=== PATIENT | female | born 1995 | race Caucasian/White ===

== ENCOUNTER 2017-01-07 11:42 | Emergency (ER) | payer MEDICAID ==
[~2017-01-07] VITALS: Ht 165.1 cm; Wt 77.1 kg
[~2017-01-07 11:42] MED LIST: ACET1TAB12 PO; AMOX500C2 PO; CEPH500C PO; DOCU100C37 PO; FRS325T PO; HYDR-3720 PO; HYDR-757 PO; IBP600T1 PO; IBUP-1780 PO; ONDN4T PO; OXYC-465 PO; PRD20T PO; PREN-37 PO; PREN1TAB39 PO; SULF1TAB38 PO
--- OUTSIDE RECORDS SUMMARY | 2017-01-07 11:50 | XMS REPORT | Continuity of Care Document ---
Author Author [facility] Organization [facility] Address Unknown Phone Unavailable Allergies Active Description Code Type Severity Reaction Onset Reported/Identified Relationship to Patient Clinical Status Yes nitrofurantoin [id number] Drug Allergy Unknown HIVES 06/03/2014 Yes Nitrofurantoin Macrocrystal [id number] Drug Allergy Unknown HIVES 06/03/2014 Yes ondansetron HCl [id number] Drug Allergy Unknown N/A 06/03/2014 Medications Problems Date Dx Coded Attending Type Code Diagnosis Diagnosed By 05/21/2013 COSME RAMIREZ APRN Ot 724.2 LUMBAGO 10/27/2013 AYLA HUERTA, CHUCKY Tirado Ot 883.0 OPEN WOUND OF FINGER 10/27/2013 AYLA HUERTA, CHUCKY Tirado Ot E920.4 ACCID-OTHER HAND TOOLS 10/27/2013 AYLA HUERTA, CHUCKY Tirado Ot V06.1 [id number], COMBINED [ 05/27/2014 DONI HUERTA, SOPHIE Clark Ot 634.90 SPON ABORT UNCOMPL-UNSP 05/31/2014 COSME RAMIREZ HEAD ATHLETIC TRAINER Ot 780.64 CHILLS (WITHOUT FEVER) 05/31/2014 COSME RAMIREZ HEAD ATHLETIC TRAINER Ot 780.79 OTH MALAISE FATIGUE 06/03/2014 TITUS ALONZO MD Ot 632 MISSED 06/03/2014 TITUS ALONZO MD Ot 634.91 SPON ABORT UNCOMPL-INC 02/26/2015 COSME RAMIREZ HEAD ATHLETIC TRAINER Ot N72 INFLAMMATORY DISEASE OF CERVIX UTERI 02/26/2015 COSME RAMIREZ HEAD ATHLETIC TRAINER Ot R52 PAIN, UNSPECIFIED 03/03/2015 COSME RAMIREZ HEAD ATHLETIC TRAINER Ot N72 03/03/2015 COSME RAMIREZ APRN Ot R52 06/05/2015 Ot O47.02 FALSE LABOR BEFORE 37 COMPLETED WEEKS OF 06/05/2015 Ot Z3A.21 21 WEEKS GESTATION OF 06/17/2015 Ot F17.210 NICOTINE DEPENDENCE, CIGARETTES, UNCOMPL 06/17/2015 Ot J02.9 ACUTE PHARYNGITIS, UNSPECIFIED 06/17/2015 Ot K08.8 OTHER SPECIFIED DISORDERS OF TEETH AND S 08/25/2015 TITUS ALONZO MD, Ot 285.9 08/25/2015 TITUS ALONZO MD, Ot 632 08/25/2015 TITUS ALONZO MD, Ot V72.83 08/25/2015 TITUS ALONZO MD, Ot V74.8 08/25/2015 TITUS ALONZO MD, Ot O47.9 FALSE LABOR, UNSPECIFIED 08/25/2015 TITUS ALONZO MD, Ot Z3A.00 WEEKS OF GESTATION OF NOT SPEC 09/01/2015 TITUS ALONZO MD, Ot O47.9 FALSE LABOR, UNSPECIFIED 09/01/2015 TITUS ALONZO MD, Ot Z3A.00 WEEKS OF GESTATION OF NOT SPEC 09/22/2015 TITUS ALONZO MD, Ot O60.14X0 LABOR THIRD TRI W DELIVE 09/22/2015 TITUS ALONZO MD, Ot O73.1 RETAINED PORTIONS OF PLACENTA AND MEMBRA 09/22/2015 TITUS ALONZO MD, Ot Z37.0 SINGLE LIVE 09/22/2015 TITUS ALONZO MD, Ot Z3A.36 36 WEEKS GESTATION OF 09/29/2015 TITUS ALONZO MD, Ot K80.50 CALCULUS OF BILE DUCT W/O CHOLANGITIS OR 09/29/2015 TITUS ALONZO MD, Ot R10.11 RIGHT UPPER QUADRANT PAIN 10/08/2015 TITUS ALONZO MD, Ot K80.50 CALCULUS OF BILE DUCT W/O CHOLANGITIS OR 10/08/2015 TITUS ALONZO MD, Ot R10.11 RIGHT UPPER QUADRANT PAIN 10/19/2016 TITUS ALONZO MD, Ot 285.9 ANEMIA NOS 10/19/2016 TITUS ALONZO MD, Ot 632 MISSED 10/19/2016 TITUS ALONZO MD, Ot V72.83 EXAM PRE-OPERATIVE NEC 10/19/2016 TITUS ALONZO MD Ot V74.8 SCREEN-BACTERIAL DIS NEC Procedures Code Description Performed By Performed On [id number] 09/21/2015 [id number] 09/21/2015 [id number] 09/21/2015 Results Encounters ACCT No. Visit Date/Time Discharge Status Pt. Type Provider Facility Loc./Unit Complaint [id number] 10/21/2016 08:15:00 2016 23:59:59 CLS Preadmit JANE ELAINE [facility] RAD RUQ PAIN R10.11 [id number] 09/26/2015 07:34:00 2015 23:59:59 CLS Outpatient TITUS ALONZO MD [facility] RAD [id number] 09/21/2015 09:26:00 2015 18:20:00 DIS Outpatient TITUS ALONZO MD [facility] LDRP [id number] 08/25/2015 18:52:00 2015 19:42:00 DIS Outpatient TITUS ALONZO MD [facility] WSo [id number] 02/26/2015 11:14:00 2014 13:51:00 DIS Emergency COSME RAMIREZ APRN [facility] ER ABD CRAMPING,BACK PAIN [id number] 06/03/2014 06:05:00 2014 09:35:00 DIS Outpatient TITUS ALONZO MD [facility] SDC MISSED [id number] 05/31/2014 12:15:00 2014 23:59:59 CLS Outpatient TITUS ALONZO MD [facility] PREOP MISSED [id number] 05/31/2014 18:23:00 2014 20:11:00 DIS Emergency COSME RAMIREZ APRN [facility] ER CHILLS,SOA [id number] 05/27/2014 21:42:00 2014 23:21:00 DIS Emergency DONI HUERTA, SOPHIE Clark [facility] ER VAG BLEED AT 11 WEEKS [id number] 10/26/2013 23:58:00 2013 00:19:00 DIS Emergency AYLA HUERTA, CHUCKY Tirado [facility] ER TETANUS SHOT [id number] 05/21/2013 20:11:00 2013 22:25:00 DIS Emergency COSME RAMIREZ APRN [facility] ER BACK PAIN [id number] 01/14/2013 22:23:00 2012 22:48:00 DIS Emergency [id number] 10/10/2012 22:21:00 2012 22:51:00 DIS Emergency [id number] 09/11/2012 13:21:00 2012 14:57:00 DIS Emergency [id number] 09/09/2012 23:30:00 2012 00:35:00 DIS Emergency [id number] 06/17/2015 21:32:00 Document Registration [id number] 06/05/2015 18:25:00 Document Registration
--- NOTE | 2017-01-07 12:11 | ED General ---
General Chief Complaint: General Problems/Pain Stated Complaint: SHAKING/NAUSEOUS Source of Information: Patient Exam Limitations: No Limitations History of Present Illness Time Seen by Provider: 12:09 Initial Comments This 19-year-old white female presents with a four-day history of nausea vomiting and diarrhea. The patient denies associated hematemesis or black or tarry stools and the patient has had mild cramping abdominal pain that has been diffuse. There is been no associated fever, chills, headache, stiff neck, productive cough, palpitations, rash, or remarkable pertinent past medical history. Patient is a spontaneous Ab1 white female. Allergies and Home Medications Allergies Coded Allergies: Nitrofurantoin Macrocrystal (Verified Allergy, Unknown, HIVES, 06/03/14) nitrofurantoin (Verified Allergy, Unknown, HIVES, 06/03/14) ondansetron HCl (Verified Allergy, Unknown, 06/03/14) Home Medications Docusate Sodium 100 Mg Capsule, 100 MG PO BID, #60 Prescribed by: TITUS GARCIA on 09/22/15 0732 Ibuprofen 800 Mg Tablet, 800 MG PO Q6H, #60 Prescribed by: TITUS GARCIA on 09/22/15 0732 Oxycodone HCl/Acetaminophen 1 Each Tablet, 1-2 TAB PO Q4H PRN for PAIN, #60 Prescribed by: TITUS GARCIA on 09/22/15 0732 Vit/Iron Fumarate/FA 1 Each Tablet, 1 EACH PO DAILY, (Reported) Constitutional: No chills, No fever EENTM: No ear pain, No vision loss Respiratory: No cough Cardiovascular: No chest pain Gastrointestinal: No abdominal pain, diarrhea, nausea, vomiting Genitourinary: No dysuria, No frequency Musculoskeletal: No back pain, No neck pain Skin: No change in color, No rash Psychiatric/Neurological: No Symptoms Reported Hematologic/Lymphatic: No Symptoms Reported Past Uhluxoj-Pdgewi-Jayvsr Hx Patient Social History Recent Foreign Travel: No Contact w/Someone Who Travel: No Immunizations Up To Date Tetanus Booster (TDap): Unknown PED Vaccines UTD: Yes Date of Pneumonia Vaccine: Feb 13, 2011 Date of Influenza Vaccine: Feb 13, 2011 Seasonal Allergies Seasonal Allergies: No Reproductive System Hx Reproductive Disorders: Yes Sexually Transmitted Disease: Yes (Dx chlamydia at beginning of ) HIV/AIDS: No Female Reproductive Disorders: Denies Reviewed Nursing Assessment Reviewed/Agree w Nursing PMH: Yes Family Medical History Significant Family History: No Pertinent Family Hx Family Medial History: Alcoholism 19 FATHER 19 MOTHER Cardiovascular disease 19 MOTHER Congenital heart disease 19 MOTHER Hypertension 19 MOTHER Myocardial infarction 19 MOTHER Physical Exam Vital Signs Vital Sign - Last 12Hours 01/07/17 12:08 Temp 96.9 Pulse 74 Resp 14 B/P (MAP) 122/84 Pulse Ox 98 O2 Delivery Room Air Capillary Refill : General Appearance: No Apparent Distress, WD/WN Eyes: Bilateral Eye Normal Inspection HEENT: Normal ENT Inspection Neck: Normal Inspection Respiratory: Chest Non Tender, Lungs Clear, Normal Breath Sounds Cardiovascular: Regular Rate, Rhythm, No Edema, No JVD, No Murmur, Normal Peripheral Pulses Gastrointestinal: Normal Bowel Sounds, No Organomegaly, No Pulsatile Mass, Non Tender, Soft Back: Normal Inspection Extremity: Normal Inspection Neurologic/Psychiatric: Alert, Oriented x3, No Motor/Sensory Deficits, Normal Mood/Affect Progress/Results/Core Measures Results/Orders Lab Results Laboratory Tests Test 01/07/17 12:00 01/07/17 12:50 Range/Units Urine Color YELLOW Urine Clarity CLEAR Urine pH 6 5-9 Urine Specific [place] 1.010 L 1.016-1.022 Urine Protein NEGATIVE NEGATIVE Urine Glucose (UA) NEGATIVE NEGATIVE Urine Ketones NEGATIVE NEGATIVE Urine Nitrite NEGATIVE NEGATIVE Urine Bilirubin NEGATIVE NEGATIVE Urine Urobilinogen NORMAL NORMAL MG/DL Urine Leukocyte Esterase NEGATIVE NEGATIVE Urine RBC (Auto) NEGATIVE NEGATIVE Urine RBC NONE /HPF Urine WBC NONE /HPF Urine Squamous Epithelial Cells RARE /HPF Urine Crystals NONE /LPF Urine Bacteria NEGATIVE /HPF Urine Casts NONE /LPF Urine Mucus NEGATIVE /LPF Urine Culture Indicated NO White Blood Count 7.7 4.3-11.0 10^3/uL Red Blood Count 4.71 4.35-5.85 10^6/uL Hemoglobin 14.8 11.5-16.0 G/DL Hematocrit 44 35-52 % Mean Corpuscular Volume 93 80-99 FL Mean Corpuscular Hemoglobin 31 25-34 PG Mean Corpuscular Hemoglobin Concent 34 32-36 G/DL Red Cell Distribution Width 12.6 10.0-14.5 % Platelet Count 223 130-400 10^3/uL Mean Platelet Volume 11.2 H 7.4-10.4 FL Neutrophils (%) (Auto) 67 42-75 % Lymphocytes (%) (Auto) 24 12-44 % Monocytes (%) (Auto) 7 0-12 % Eosinophils (%) (Auto) 1 0-10 % Basophils (%) (Auto) 1 0-10 % Neutrophils # (Auto) 5.2 1.8-7.8 X 10^3 Lymphocytes # (Auto) 1.9 1.0-4.0 X 10^3 Monocytes # (Auto) 0.6 0.0-1.0 X 10^3 Eosinophils # (Auto) 0.0 0.0-0.3 10^3/uL Basophils # (Auto) 0.0 0.0-0.1 10^3/uL Sodium Level 140 135-145 MMOL/L Potassium Level 3.4 L 3.6-5.0 MMOL/L Chloride Level 105 98-107 MMOL/L Carbon Dioxide Level 27 21-32 MMOL/L Anion Gap 8 5-14 MMOL/L Blood Urea Nitrogen 4 L 7-18 MG/DL Creatinine 0.72 0.60-1.30 MG/DL Estimat Glomerular Filtration Rate > 60 BUN/Creatinine Ratio 6 Glucose Level 94 70-105 MG/DL Calcium Level 9.6 8.5-10.1 MG/DL Total Bilirubin 0.4 0.1-1.0 MG/DL Aspartate Amino Transf (AST/SGOT) 19 5-34 U/L Alanine Aminotransferase (ALT/SGPT) 16 0-55 U/L Alkaline Phosphatase 55 40-136 U/L Total Protein 7.2 6.4-8.2 GM/DL Albumin 4.4 3.2-4.5 GM/DL Lipase 24 8-78 U/L My Orders Orders - JESSICA RUEDA MD Cbc With Automated Diff (01/07/17 12:06) Comprehensive Metabolic Panel (01/07/17 12:06) Lipase (01/07/17 12:06) Ua Culture If Indicated (01/07/17 12:06) Ondansetron Injection (Zofran Injectio (01/07/17 12:15) Ns Iv 1000 Ml (Sodium Chloride 0.9%) (01/07/17 12:15) Vital Signs/I&O Vital Sign - Last 12Hours 01/07/17 12:08 Temp 96.9 Pulse 74 Resp 14 B/P (MAP) 122/84 Pulse Ox 98 O2 Delivery Room Air Progress Note : Time: 14:40 Progress Note Patient received a liter of normal saline with good improvement in her symptoms. Patient's nausea subsided spontaneously. Patient felt ready to go home on a trial of clear liquids. She did not want to take any meds. I had ordered Zofran for nausea but patient reported she was allergic to the med and the nurse did a good job of withholding it from the patient. Departure Impression Impression: Primary Impression: Nausea & vomiting Qualified Codes: R11.2 - Nausea with vomiting, unspecified Disposition: HOME, SELF-CARE Condition: Improved Departure-Patient Inst. Decision time for Depature: 14:44 Referrals: JANE ELAINE (PCP) Primary Care Physician LANIE ARAUJO MD (Family) Primary Care Physician Patient Instructions: Nausea and Vomiting, Adult Add. Discharge Instructions: Liquid diet today. Rest at home today return of any problems. Follow-up with your care physicians on Tuesday if you have any residual symptoms. All discharge instructions reviewed with patient and/or family. Voiced understanding. JESSICA RUEDA MD Jan 07, 2017 12:11
[2017-01-07 12:12] LABS: BILIRUBIN,URINE NEGATIVE (NEGATIVE); KETONES,URINE NEGATIVE (NEGATIVE); LEUKOCYTE ESTERASE ,URINE NEGATIVE (NEGATIVE); NITRITE,URINE NEGATIVE (NEGATIVE); PH,URINE 6 (5-9); PROTEIN,URINE NEGATIVE (NEGATIVE); UROBILINOGEN,URINE NORMAL (NORMAL)
[2017-01-07 12:22] LABS: SQUAMOUS EPITHELIAL CELL,UR RARE /HPF
[2017-01-07] MEDS: ONDANSETRON 4 MG/2 ML (SDV) Z0FRAN IVP ONE (12:35)
[2017-01-07 13:01] LABS: BASOPHILS % (AUTO) 1 % (0-10); EOSINOPHILS % (AUTO) 1 % (0-10); LYMPHOCYTES # (AUTO) 1.9 X 10^3 (1.0-4.0); LYMPHOCYTES % (AUTO) 24 % (12-44); MEAN CORPUSCULAR HEMOGLOBIN 31 PG (25-34); MEAN CORPUSCULAR HGB CONC 34 G/DL (32-36); MEAN CORPUSCULAR VOLUME 93 FL (80-99); MEAN PLATELET VOLUME 11.2 FL (7.4-10.4); MONOCYTES # (AUTO) 0.6 X 10^3 (0.0-1.0); MONOCYTES % (AUTO) 7 % (0-12); NEUTROPHILS # (AUTO) 5.2 X 10^3 (1.8-7.8); NEUTROPHILS % (AUTO) 67 % (42-75); PLATELET COUNT 223 10^3/uL (130-400); RED BLOOD COUNT 4.71 10^6/uL (4.35-5.85); RED CELL DISTRIBUTION WIDTH 12.6 % (10.0-14.5); WHITE BLOOD COUNT 7.7 10^3/uL (4.3-11.0)
[2017-01-07] MEDS: NS IV 1000 ML 1,000 ML IV SCH (13:06)
[2017-01-07 13:23] LABS: ALANINE AMINOTRANSFERASE 16 U/L (0-55); ALBUMIN 4.4 GM/DL (3.2-4.5); ANION GAP 8 MMOL/L (5-14); ASPARTATE AMINO TRANSFERASE 19 U/L (5-34); BILIRUBIN,TOTAL 0.4 MG/DL (0.1-1.0); BLOOD UREA NITROGEN 4 MG/DL (7-18); BUN/CREATININE RATIO 6; CALCIUM 9.6 MG/DL (8.5-10.1); CARBON DIOXIDE 27 MMOL/L (21-32); CHLORIDE 105 MMOL/L (98-107); CREATININE SERUM 0.72 MG/DL (0.60-1.30); GFR ESTIMATED > 60; GLUCOSE 94 MG/DL (70-105); LIPASE 24 U/L (8-78); POTASSIUM 3.4 MMOL/L (3.6-5.0); SODIUM 140 MMOL/L (135-145); TOTAL PROTEIN 7.2 GM/DL (6.4-8.2)
[2017-01-07 14:50] VITALS: BP 128/87
== END 2017-01-07 14:50 | disposition home or self-care (01) ==
LOC: EDUNIT# 11:42 → ER 11:45
DX: R11.2 Nausea with vomiting, unspecified (principal); Z82.49 Family history of ischemic heart disease and other diseases of the circulatory system; Z87.59 Personal history of other complications of pregnancy, childbirth and the puerperium
CPT/HCPCS: 36415; 80053; 81000; 83690; 85025

== ENCOUNTER 2017-08-23 19:23 | Emergency (ER) | payer MEDICAID ==
[~2017-08-23] VITALS: Ht 165.1 cm; Wt 81.2 kg
--- OUTSIDE RECORDS SUMMARY | 2017-08-23 19:28 | XMS REPORT ---
Author Author JANE ELAINE [facility] Address [address] [place] [address] Care Team Providers Care Pre Planning Advisor Name Role Phone JANE ELAINE Unavailable PROBLEMS Type Condition ICD9-CM Code [id number] Code Onset Dates Condition Status SNOMED Code Problem Adjustment disorder with depressed mood F43.21 Active 47242873 Problem Adjustment disorder with anxiety F43.22 Active 70259674 Problem Social phobia F40.10 Active 29878326 Problem Grief reaction F43.20 Active 33790532 ALLERGIES Substance Reaction Event Type Date Status Macrobid anaphylaxis Drug Allergy September, Active SOCIAL HISTORY Never Assessed PLAN OF CARE Activity Details Follow Up 4 Weeks Reason: VITAL SIGNS Height 65.0 in 2016-10-13 Weight 167 lbs 2016-10-13 Temperature 98.6 degrees Fahrenheit 2016-10-13 Heart Rate 88 bpm 2016-10-13 Respiratory Rate 18 2016-10-13 BMI 27.79 kg/m2 2016-10-13 Blood pressure systolic 98 mmHg 2016-10-13 Blood pressure diastolic 68 mmHg 2016-10-13 MEDICATIONS Medication Instructions Dosage Frequency Start Date End Date Duration Status Pepcid 20 mg Orally twice a day 1 tablet 12September, 30 day(s) Active RESULTS Name Result Date Reference Range H PYLORI (IN HOUSE) H. PYLORI negative Control + Lot # [id number] Exp date 04/2017 TRICHOMONAS (IN HOUSE) 2016-10-13 TRICHOMONAS Neg Control + Lot # [id number] Exp date 10/2017 BACTERIAL VAGINOSIS (IN HOUSE) 2016-10-13 RESULTS Neg Control 1+ Lot # [id number] Exp date 02/2017 CBC 2016-10-13 WBC 10.6 3.4-10.8 RBC 4.61 3.77-5.28 Hemoglobin 14.8 11.1-15.9 Hematocrit 44.5 34.0-46.6 MCV 97 79-97 MCH 32.1 26.6-33.0 MCHC 33.3 31.5-35.7 RDW 13.2 12.3-15.4 Platelets 286 150-379 Neutrophils 67 Lymphs 26 Monocytes 6 Eos 1 Basos 0 Immature Cells Neutrophils (Absolute) 7.1 1.4-7.0 Lymphs (Absolute) 2.8 0.7-3.1 Monocytes(Absolute) 0.6 0.1-0.9 Eos (Absolute) 0.1 0.0-0.4 Baso (Absolute) 0.0 0.0-0.2 Immature Granulocytes 0 Immature Grans (Abs) 0.0 0.0-0.1 NRBC Hematology Comments: Note: CMP 2016-10-13 Glucose, Serum 92 65-99 BUN 5 6-20 Creatinine, Serum 0.67 0.57-1.00 eGFR If NonAfricn Am 125 >59 eGFR If Africn Am 144 >59 BUN/Creatinine Ratio 7 9-23 Sodium, Serum 143 134-144 Potassium, Serum 4.4 3.5-5.2 Chloride, Serum 100 96-106 Carbon Dioxide, Total 27 18-29 Calcium, Serum 10.1 8.7-10.2 Protein, Total, Serum 7.4 6.0-8.5 Albumin, Serum 4.8 3.5-5.5 Globulin, Total 2.6 1.5-4.5 A/G Ratio 1.8 1.2-2.2 Bilirubin, Total 0.4 0.0-1.2 Alkaline Phosphatase, S 67 39-117 AST (SGOT) 18 0-40 ALT (SGPT) 14 0-32 GC/CHLAM PROBE (STATE) 2016-10-13 CHLAMYDIA negative GC negative UA LONG DIP (IN HOUSE) 2016-10-13 Lot # [id number] Exp date 07/2017 Clarity CLEAR Color YELLOW Odor NO GLU NEG GABRIEL NEG KET NEG SG 1.015 BLO NEG pH 8.5 Protein NEG URO 0.2 NIT NEG GEM NEG Lot # Exp date PROCEDURES Procedure Date Ordered Result Body Site IMMUNOASSAY,INFECTIOUS AGENT October 13, 2016 URINALYSIS, AUTO, W/O SCOPE October 13, 2016 VENIPUNCT, ROUTINE* October 13, 2016 LAB [facility] October 13, 2016 No Charge October 13, 2016 CELESTIN VAG, DNA, DIR PROBE October 13, 2016 IMMUNIZATIONS No Known Immunizations MEDICAL (GENERAL) HISTORY Type Description Date Surgical History dilatation and curettage Hospitalization History childbirth only
--- OUTSIDE RECORDS SUMMARY | 2017-08-23 19:28 | XMS REPORT ---
Author Author JANE ELAINE Organization [facility] Address [address] [place] [address] Care Team Providers Care Color Shop Helper Name Role Phone JANE ELAINE Unavailable PROBLEMS Type Condition ICD9-CM Code [id number] Code Onset Dates Condition Status SNOMED Code Problem Adjustment disorder with depressed mood F43.21 Active 06645648 Problem Adjustment disorder with anxiety F43.22 Active 44584995 Problem Social phobia F40.10 Active 64696613 Problem Grief reaction F43.20 Active 00879446 ALLERGIES Substance Reaction Event Type Date Status Macrobid anaphylaxis Drug Allergy September, Active SOCIAL HISTORY Never Assessed PLAN OF CARE Activity Details Follow Up 2 - 3 Days, prn Reason: VITAL SIGNS Height 65.0 in 2016-09-27 Weight 167.4 lbs 2016-09-27 Temperature 98.9 degrees Fahrenheit 2016-09-27 Heart Rate 116 bpm 2016-09-27 Respiratory Rate 20 2016-09-27 BMI 27.85 kg/m2 2016-09-27 Blood pressure systolic 122 mmHg 2016-09-27 Blood pressure diastolic 66 mmHg 2016-09-27 MEDICATIONS Medication Instructions Dosage Frequency Start Date End Date Duration Status Amoxicillin 875 MG Orally every 12 hrs 1 tablet 12h September, September, 10 day(s) Active RESULTS Name Result Date Reference Range STREP A (IN HOUSE) 2016-09-27 STREP A Positive Control + Lot # [id number] Exp date 2017-07-13 PROCEDURES Procedure Date Ordered Result Body Site STREP A ASSAY W/OPTIC September 27, 2016 IMMUNIZATIONS No Known Immunizations MEDICAL (GENERAL) HISTORY Type Description Date Surgical History dilatation and curettage Hospitalization History childbirth only
--- OUTSIDE RECORDS SUMMARY | 2017-08-23 19:28 | XMS REPORT ---
Author Author Toni JANE Organization [facility] [place] Address [address] [place] [address] Care Team Providers Care Tile Machine Operator Name Role Phone curryFrank JANE Unavailable PROBLEMS Type Condition ICD9-CM Code [id number] Code Onset Dates Condition Status SNOMED Code Problem Adjustment disorder with depressed mood F43.21 Active 08500908 Problem Adjustment disorder with anxiety F43.22 Active 47145757 Problem Hematuria, unspecified type R31.9 Active 16028153 Problem Social phobia F40.10 Active 06836946 Problem Grief reaction F43.20 Active 65236586 ALLERGIES Substance Reaction Event Type Date Status Macrobid anaphylaxis Drug Allergy Oct, Active ENCOUNTERS Encounter Location Date Diagnosis [place] [address] [address] Jul, [place] [address] [address] Jul, Tubal ligation evaluation Z01.818 and General counseling and advice on female contraception Z30.09 [place] [address] [place] [id number] [place] [address] Apr, Hematuria, unspecified type R31.9 [place] [address] [place] [id number] [place] [address] Apr, Dysuria R30.0 ; Gross hematuria R31.0 and Dysfunction of right eustachian tube H69.81 [place] [address] [address] Feb, Pharyngitis due to other organism J02.8 [place] [address] [place] [id number] [place] [address] Oct, Acute vaginitis N76.0 [facility] [place] [address] [place] [address] Oct, 2016 Dysuria R30.0 ; Vaginal itching L29.8 ; Vaginal discharge N89.8 and Vaginal candidiasis B37.3 [facility] [place] [address], [place] [address] September, Dysuria R30.0 ; Right upper quadrant abdominal pain R10.11 and Acute vaginitis N76.0 [facility] [place] [address] [place] [id number] [place] [address] September, Strep throat J02.0 [facility] [place] [address] [place] [id number] [place] [address] September, [facility] [place] [address] [place] [id number] [place] [address] Aug, Grief reaction F43.20 ; Adjustment disorder with anxiety F43.22 ; Adjustment disorder with depressed mood F43.21 and Social phobia F40.10 [facility] [place] [id number] [place] [address] May, [facility] [place] [address] [place] [id number] [place] [address] May, [facility] [place] [address], [place] [address] May, [facility] [place] [address] [place] [id number] [place] [address] Feb, [facility] [place] [id number] [place] [address] Jan, [facility] [place] [address] [place] [id number] [place] [address] Feb, [facility] [place] [id number] [place] [address] Feb, [facility] [place] [address] [place] [id number] [place] [address] Feb, IMMUNIZATIONS No Known Immunizations SOCIAL HISTORY Never Assessed REASON FOR VISIT Lab f/u , No other concerns at this time, PT did NOT go to her rodriguez Kaminski MA PLAN OF CARE Activity Details Follow Up prn Reason: VITAL SIGNS Height 65.0 in 2016-11-04 Weight 167.0 lbs 2016-11-04 Temperature 98.4 degrees Fahrenheit 2016-11-04 Heart Rate 70 bpm 2016-11-04 Respiratory Rate 18 2016-11-04 BMI 27.79 kg/m2 2016-11-04 Blood pressure systolic 106 mmHg 2016-11-04 Blood pressure diastolic 70 mmHg 2016-11-04 MEDICATIONS Medication Instructions Dosage Frequency Start Date End Date Duration Status Pepcid 20 mg Orally twice a day 1 tablet 12h September, 30 day(s) Active Diflucan 100 mg Orally Once a day 1 tablet 24h Oct, Oct, 07 days Active RESULTS No Results PROCEDURES No Known procedures INSTRUCTIONS MEDICATIONS ADMINISTERED No Known Medications MEDICAL (GENERAL) HISTORY Type Description Date Surgical History dilatation and curettage Hospitalization History childbirth only
--- OUTSIDE RECORDS SUMMARY | 2017-08-23 19:28 | XMS REPORT ---
Author Author KEENAN ORELLANA Organization [facility] Address [address] [place] [address] Care Team Providers Care Clinical Asst Name Role Phone KEENAN ORELLANA Unavailable PROBLEMS Type Condition ICD9-CM Code [id number] Code Onset Dates Condition Status SNOMED Code Problem Adjustment disorder with depressed mood F43.21 Active 93376288 Problem Adjustment disorder with anxiety F43.22 Active 09882727 Problem Social phobia F40.10 Active 85589549 Problem Grief reaction F43.20 Active 23074752 ALLERGIES No Known Allergies SOCIAL HISTORY No smoking Hx information available PLAN OF CARE VITAL SIGNS MEDICATIONS No Known Medications RESULTS No Results PROCEDURES No Known procedures IMMUNIZATIONS No Known Immunizations
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
[2017-08-23 19:35] VITALS: BP_SYST 106; BP_SYST 109; BP_SYST 112; BP_DIAS 47; BP_DIAS 61; BP_DIAS 78
[2017-08-23] MEDS ORDERED: LACTATED RINGERS 1,000 ML IV ONE (19:56)
[2017-08-23] MEDS ORDERED: PROMETHAZINE 25 MG (PHENERGAN) TAB PO ONE (20:00)
--- NOTE | 2017-08-23 20:04 | ED GI ---
General Chief Complaint: General Problems/Pain Stated Complaint: SHAKEY FEELING Nursing Triage Note: DECREASED APPETITE, NAUSEA, "SHAKINESS" DIFFICULTY SLEEPING X1 WEEK Sepsis Screen: No Definite Risk Source of Information: Patient Exam Limitations: No Limitations History of Present Illness Date Seen by Provider: Aug 23, 2017 Time Seen by Provider: 19:46 Initial Comments Patient presents to the ER by private conveyance with a chief complaint of feeling shaky. She says she's had diarrhea for the past year. For the past week however she started feeling a little shaky and off like she's got an infection. She says this is how she felt when she had a urinary tract infection in the past but she's not having any dysuria this time. She has no discharge. She is sexually active but uses condoms. She is not on control and her last menstrual period was one week ago. She has no cough, shortness of breath, chest pain. She does have some pain in her epigastric region that starts up about 10- 15 minutes after eating. She says she had her gallbladder worked up several months ago with an ultrasound was told it was normal. She denies ever being told that she might have irritable bowel syndrome or inflammatory bowel disease. She has never had a colonoscopy or EGD. She has had a D&C but no other abdominal surgery. She says she's felt feverish with chills but never checked a temperature. She has been taking Tylenol with modest relief of some of her symptoms. She has not fainted nor fallen. She has no personal history of diabetes however she says her father was recently diagnosed with diabetes. She does not take any medicines routinely except for a multivitamin that she started in an attempt to help with her chronic diarrhea and she says it did slow down for a few weeks but it returned. Allergies and Home Medications Allergies Coded Allergies: Nitrofurantoin Macrocrystal (Verified Allergy, Unknown, HIVES, 01/07/17) nitrofurantoin (Verified Allergy, Unknown, HIVES, 01/07/17) ondansetron HCl (Verified Allergy, Unknown, 01/07/17) Home Medications No Active Prescriptions or Reported Meds Patient Home Medication List Home Medication List Reviewed: Yes Review of Systems Constitutional: chills, No diaphoresis, No dizziness, fever, malaise, weakness EENTM: Blurred Vision, No Double Vision Respiratory: Denies Cough, Denies Shortness of Air Cardiovascular: Denies Chest Pain, Denies Edema, Denies Lightheadedness, Denies Palpitations Gastrointestinal: See HPI, Denies Abdomen Distended, Abdominal Pain, Denies Blood Streaked Stools, Denies Constipated, Diarrhea, Nausea, Vomiting Genitourinary: Denies Burning, Denies Discharge, Denies Drainage Musculoskeletal: No back pain, No joint pain Skin: No pruritus, No rash Psychiatric/Neurological: Denies Headache, Denies Numbness, Denies Paresthesia Past Bcbgbzo-Ptvdjn-Flrkxz Hx Patient Social History Alcohol Use: Denies Use Recreational Drug Use: No Smoking Status: Current Everyday Smoker Type Used: Cigarettes 2nd Hand Smoke Exposure: Yes Recent Foreign Travel: No Contact w/Someone Who Travel: No Recent Infectious Disease Expo: No Recent Hopitalizations: No Immunizations Up To Date Tetanus Booster (TDap): Unknown PED Vaccines UTD: Yes Date of Pneumonia Vaccine: Feb 13, 2011 Date of Influenza Vaccine: Feb 13, 2011 Seasonal Allergies Seasonal Allergies: No Past Medical History Surgeries: Yes (D&C) Respiratory: No Cardiac: No Neurological: No : No Last Menstrual Period: Aug 16, 2017 Reproductive Disorders: Yes Female Reproductive Disorders: Denies Sexually Transmitted Disease: Yes (Dx chlamydia at beginning of ) HIV/AIDS: No Genitourinary: No Gastrointestinal: No Musculoskeletal: No Endocrine: No HEENT: No Cancer: No Psychosocial: No Integumentary: Yes (h/o mrsa infections of the lt ear) Blood Disorders: No Family Medical History Alcoholism 19 FATHER 19 MOTHER Cardiovascular disease 19 MOTHER Congenital heart disease 19 MOTHER Hypertension 19 MOTHER Myocardial infarction 19 MOTHER No Pertinent Family Hx Physical Exam Vital Signs Vital Signs - First Documented Capillary Refill : Less Than 3 Seconds General Appearance: WD/WN, no apparent distress HEENT: PERRL/EOMI, normal ENT inspection, TMs normal, pharynx normal Neck: non-tender, full range of motion, supple, normal inspection Respiratory: chest non-tender, lungs clear, normal breath sounds, no respiratory distress, no accessory muscle use Cardiovascular: normal peripheral pulses, regular rate, rhythm, no edema Peripheral Pulses: 2+ Dorsalis Pedis (R), 2+ Left Dors-Pedis (L), 2+ Radial Pulses (R), 2+ Radial Pulses (L) Gastrointestinal: soft, no organomegaly, abnormal bowel sounds (hyperactive), No guarding, No rebound, tenderness (bilateral lower quadrants are mildly tender and the epigastric region is mildly tender to palpation) Extremities: non-tender, normal inspection, no pedal edema, no calf tenderness , normal capillary refill Back: normal inspection, no CVA tenderness Neurologic/Psychiatric: alert, oriented x 3, depressed affect Skin: normal color, warm/dry Progress/Results/Core Measures Lab Results Laboratory Tests Test 08/23/17 20:05 Range/Units White Blood Count 6.7 4.3-11.0 10^3/uL Red Blood Count 4.39 4.35-5.85 10^6/uL Hemoglobin 14.3 11.5-16.0 G/DL Hematocrit 42 35-52 % Mean Corpuscular Volume 95 80-99 FL Mean Corpuscular Hemoglobin 33 25-34 PG Mean Corpuscular Hemoglobin Concent 35 32-36 G/DL Red Cell Distribution Width 13.1 10.0-14.5 % Platelet Count 229 130-400 10^3/uL Mean Platelet Volume 11.3 H 7.4-10.4 FL Neutrophils (%) (Auto) 52 42-75 % Lymphocytes (%) (Auto) 38 12-44 % Monocytes (%) (Auto) 9 0-12 % Eosinophils (%) (Auto) 2 0-10 % Basophils (%) (Auto) 1 0-10 % Neutrophils # (Auto) 3.5 1.8-7.8 X 10^3 Lymphocytes # (Auto) 2.5 1.0-4.0 X 10^3 Monocytes # (Auto) 0.6 0.0-1.0 X 10^3 Eosinophils # (Auto) 0.1 0.0-0.3 10^3/uL Basophils # (Auto) 0.0 0.0-0.1 10^3/uL Urine Color YELLOW Urine Clarity SLIGHTLY CLOUDY Urine pH 6.5 5-9 Urine Specific [place] 1.015 L 1.016-1.022 Urine Protein 2+ H NEGATIVE Urine Glucose (UA) NEGATIVE NEGATIVE Urine Ketones NEGATIVE NEGATIVE Urine Nitrite NEGATIVE NEGATIVE Urine Bilirubin NEGATIVE NEGATIVE Urine Urobilinogen NORMAL NORMAL MG/DL Urine Leukocyte Esterase 3+ H NEGATIVE Urine RBC (Auto) 1+ H NEGATIVE Urine RBC 0-2 /HPF Urine WBC 10-25 H /HPF Urine Crystals NONE /LPF Urine Bacteria FEW H /HPF Urine Casts NONE /LPF Urine Mucus SMALL H /LPF Urine Culture Indicated YES Urine Test NEGATIVE NEGATIVE Sodium Level 140 135-145 MMOL/L Potassium Level 3.4 L 3.6-5.0 MMOL/L Chloride Level 105 98-107 MMOL/L Carbon Dioxide Level 27 21-32 MMOL/L Anion Gap 8 5-14 MMOL/L Blood Urea Nitrogen 4 L 7-18 MG/DL Creatinine 0.74 0.60-1.30 MG/DL Estimat Glomerular Filtration Rate > 60 BUN/Creatinine Ratio 5 Glucose Level 101 70-105 MG/DL Calcium Level 9.5 8.5-10.1 MG/DL Magnesium Level 2.0 1.8-2.4 MG/DL Total Bilirubin 0.4 0.1-1.0 MG/DL Aspartate Amino Transf (AST/SGOT) 18 5-34 U/L Alanine Aminotransferase (ALT/SGPT) 15 0-55 U/L Alkaline Phosphatase 50 40-136 U/L C-Reactive Protein High Sensitivity 0.18 0.00-0.50 MG/DL Total Protein 6.9 6.4-8.2 GM/DL Albumin 4.4 3.2-4.5 GM/DL Urine Opiates Screen NEGATIVE NEGATIVE Urine Oxycodone Screen NEGATIVE NEGATIVE Urine Methadone Screen NEGATIVE NEGATIVE Urine Propoxyphene Screen NEGATIVE NEGATIVE Urine Barbiturates Screen NEGATIVE NEGATIVE Ur Tricyclic Antidepressants Screen NEGATIVE NEGATIVE Urine Phencyclidine Screen NEGATIVE NEGATIVE Urine Amphetamines Screen NEGATIVE NEGATIVE Urine Methamphetamines Screen NEGATIVE NEGATIVE Urine Benzodiazepines Screen NEGATIVE NEGATIVE Urine Cocaine Screen NEGATIVE NEGATIVE Urine Cannabinoids Screen NEGATIVE NEGATIVE My Orders Orders - JOSE CHRISTIANSEN Cbc With Automated Diff (08/23/17 19:56) Comprehensive Metabolic Panel (08/23/17 19:56) Hs C Reactive Protein (08/23/17 19:56) Drug Screen Stat (Urine) (08/23/17 19:56) Hcg,Qualitative Urine (08/23/17 19:56) Magnesium (08/23/17 19:56) Ua Culture If Indicated (08/23/17 19:56) Abdomen, Flat & Upright/Decub (08/23/17 19:56) Saline Lock/Iv-Start (08/23/17 19:56) Lactated Ringers (Lr 1000 Ml Iv Solution (08/23/17 19:56) Promethazine Tablet (Phenergan Tablet) (08/23/17 20:00) Orthostatic Vital Signs (Adult (08/23/17 20:05) Urine Culture (08/23/17 20:05) Medications Given in ED Current Medications Medications Dose Ordered Sig/Sylwia Route Start Time Stop Time Status Last Admin Dose Admin Lactated Ringer's 1,000 ml @ 0 mls/hr Q0M ONCE IV 08/23/17 19:56 08/23/17 19:59 DC 08/23/17 20:09 0 MLS/HR Promethazine HCl 25 mg ONCE ONCE PO 08/23/17 20:00 08/23/17 20:01 DC 08/23/17 20:15 25 MG Vital Signs/I&O 08/23/17 08/23/17 19:35 19:35 Temp 97.7 Pulse 61 62 63 75 Resp 18 B/P (MAP) 115/71 (86) 106/47 (66) 109/61 (77) 112/78 (89) Pulse Ox 99 O2 Delivery Room Air Blood Pressure Mean: 89 Progress Note : Time: 20:00 Progress Note Orthostatic blood pressures are unremarkable. The patient is afebrile presently. We will give her something for her nausea and check her labs. We'll think about type 1 diabetes, irritable bowel syndrome, infectious GI syndrome. We'll check a urinalysis for UTI. We'll get an x-ray of her belly is she's having hyperactive bowel sounds. She does not seem to have obstruction sings how she's had a bowel movement that was loose yesterday. She is not really having any pain at rest just after eating or with palpation to bilateral lower quadrants and the epigastric region. IBS/IBD would be in the differential as well. We'll check a CRP looking for evidence of inflammation. Diagonstic Imaging: Xray Plain Films/CT/US/NM/MRI: abdomen (3 views) Comments [facility] [place] [place] NAME: MARCELLUS PLEITEZ [facility] REC#: [id number] PT STATUS: REG ER : 1995 PHYSICIAN: JOSE CHRISTIANSEN MD ADMIT DATE: 08/23/17/ER Draft Date of Exam:08/23/17 ABDOMEN, FLAT & UPRIGHT/DECUB EXAMINATION: Abdomen supine and erect at 0849 PM INDICATION: Nausea and vomiting There is some gas in both the large and small bowel in a nonspecific fashion. This appearance is similar to the lumbar spine exam of 01/29/2009. There is no sign of bowel obstruction. There is no mass or organomegaly appreciated. There are no pathological calcifications. The osseous structures are intact. IMPRESSION: The bowel gas pattern is nonspecific. There is no acute abnormality identified. Dictated on workstation # [id number] Dict: 08/23/172040 Trans: 08/23/172043 [facility] [id number] Interpreted by: DOE KLEIN MD Electronically signed by: Reviewed: Reviewed by Me Departure Impression Primary Impression: Urinary tract infection Qualified Codes: N30.00 - Acute cystitis without hematuria Disposition: HOME, SELF-CARE Condition: Stable Departure-Patient Inst. Decision time for Depature: 20:59 Referrals: JANE ELAINE (PCP) Primary Care Physician LANIE ARAUJO MD (Family) Primary Care Physician Patient Instructions: Urinary Tract Infection, Adult (DC) Add. Discharge Instructions: Drink lots of fluids and rock picker the antibiotics take one capsule twice a day for the next 5 days. If this becomes a recurrent issue you can follow-up with her primary care physician to discuss evaluation and management. All discharge instructions reviewed with patient and/or family. Voiced understanding. Scripts Cephalexin (Keflex) 500 Mg Capsule 500 MG PO BID for 5 Days, #10 CAP 0 Refills Prov: JOSE CHRISTIANSEN 08/23/17 Copy Copies To 1: LATOSHA MAZARIEGOS DO JOSE CHRISTIANSEN Aug 23, 2017 20:04
[2017-08-23 20:17] LABS: BILIRUBIN,URINE NEGATIVE (NEGATIVE); CLARITY,URINE SLIGHTLY CLOUDY; COLOR,URINE YELLOW; GLUCOSE, URINE (UA) NEGATIVE (NEGATIVE); KETONES,URINE NEGATIVE (NEGATIVE); LEUKOCYTE ESTERASE ,URINE 3+ (NEGATIVE); NITRITE,URINE NEGATIVE (NEGATIVE); PH,URINE 6.5 (5-9); PROTEIN,URINE 2+ (NEGATIVE); UROBILINOGEN,URINE NORMAL (NORMAL)
[2017-08-23 20:20] LABS: BASOPHILS % (AUTO) 1 % (0-10); EOSINOPHILS # (AUTO) 0.1 10^3/uL (0.0-0.3); EOSINOPHILS % (AUTO) 2 % (0-10); HEMATOCRIT 42 % (35-52); HEMOGLOBIN 14.3 G/DL (11.5-16.0); LYMPHOCYTES # (AUTO) 2.5 X 10^3 (1.0-4.0); LYMPHOCYTES % (AUTO) 38 % (12-44); MEAN CORPUSCULAR HEMOGLOBIN 33 PG (25-34); MEAN CORPUSCULAR HGB CONC 35 G/DL (32-36); MEAN CORPUSCULAR VOLUME 95 FL (80-99); MEAN PLATELET VOLUME 11.3 FL (7.4-10.4); MONOCYTES # (AUTO) 0.6 X 10^3 (0.0-1.0); MONOCYTES % (AUTO) 9 % (0-12); NEUTROPHILS # (AUTO) 3.5 X 10^3 (1.8-7.8); NEUTROPHILS % (AUTO) 52 % (42-75); PLATELET COUNT 229 10^3/uL (130-400); RED BLOOD COUNT 4.39 10^6/uL (4.35-5.85); RED CELL DISTRIBUTION WIDTH 13.1 % (10.0-14.5); WHITE BLOOD COUNT 6.7 10^3/uL (4.3-11.0)
[2017-08-23 20:26] LABS: BACTERIA,URINE FEW /HPF; RBC,URINE 0-2 /HPF
[2017-08-23 20:30] LABS: HCG,QUALITATIVE URINE NEGATIVE (NEGATIVE)
[2017-08-23 20:36] LABS: AMPHETAMINE SCREEN, URINE NEGATIVE (NEGATIVE); BARBITURATE SCREEN URINE NEGATIVE (NEGATIVE); BENZODIAZEPINES SCREEN URINE NEGATIVE (NEGATIVE); CANNABINOID SCREEN, URINE NEGATIVE (NEGATIVE); COCAINE SCREEN URINE NEGATIVE (NEGATIVE); METHADONE STAT NEGATIVE (NEGATIVE); METHAMPHETAMINE SCREEN URINE S NEGATIVE (NEGATIVE); OPIATE SCREEN URINE NEGATIVE (NEGATIVE); OXYCODONE STAT NEGATIVE (NEGATIVE); PROPOXYPHENE STAT NEGATIVE (NEGATIVE); TRICYCLIC ANTIDEPRESSANTS SCRE NEGATIVE (NEGATIVE)
[2017-08-23 20:39] LABS: ALANINE AMINOTRANSFERASE 15 U/L (0-55); ALBUMIN 4.4 GM/DL (3.2-4.5); ALKALINE PHOSPHATASE 50 U/L (40-136); BILIRUBIN,TOTAL 0.4 MG/DL (0.1-1.0); BUN/CREATININE RATIO 5; CALCIUM 9.5 MG/DL (8.5-10.1); CARBON DIOXIDE 27 MMOL/L (21-32); CHLORIDE 105 MMOL/L (98-107); CREATININE SERUM 0.74 MG/DL (0.60-1.30); GFR ESTIMATED > 60; GLUCOSE 101 MG/DL (70-105); POTASSIUM 3.4 MMOL/L (3.6-5.0); SODIUM 140 MMOL/L (135-145); TOTAL PROTEIN 6.9 GM/DL (6.4-8.2)
--- NOTE | 2017-08-23 20:45 | Diagnostic Imaging Report ---
EXAMINATION: Abdomen supine and erect at 0849 PM INDICATION: Nausea and vomiting There is some gas in both the large and small bowel in a nonspecific fashion. This appearance is similar to the lumbar spine exam of 01/29/2009. There is no sign of bowel obstruction. There is no mass or organomegaly appreciated. There are no pathological calcifications. The osseous structures are intact. IMPRESSION: The bowel gas pattern is nonspecific. There is no acute abnormality identified. Dictated by: Dictated on workstation # [id number]
[2017-08-23] MEDS ORDERED: CEPH-507 PO (21:03)
[2017-08-23 21:15] VITALS: BP 120/84
== END 2017-08-23 21:15 | disposition home or self-care (01) ==
LOC: EDUNIT# 19:23 → ER 19:24
DX: N39.0 Urinary tract infection, site not specified (principal); F17.210 Nicotine dependence, cigarettes, uncomplicated; Z88.8 Allergy status to other drugs, medicaments and biological substances; Z86.14 Personal history of Methicillin resistant Staphylococcus aureus infection; Z82.49 Family history of ischemic heart disease and other diseases of the circulatory system
CPT/HCPCS: 36415; 74019; 80053; 80306; 81000; 83735; 84703; 85025; 86141; 87088; 96360

== ENCOUNTER 2017-12-29 22:01 | Emergency (ER) | payer MEDICAID ==
[~2017-12-29] VITALS: Ht 162.6 cm; Wt 82.6 kg
[~2017-12-29 22:01] MED LIST changes: +CEPH-507 PO
--- NOTE | 2017-12-29 22:19 | ED General ---
General Chief Complaint: Allergic Reaction Stated Complaint: POSS ALLERGIC REACTION TO ANTI DEPRESSANT Source of Information: Patient Exam Limitations: No Limitations History of Present Illness Date Seen by Provider: Dec 29, 2017 Time Seen by Provider: 22:15 Initial Comments To ER with concerns of a possible allergic reaction. She reports alternating sweating and chills, nausea, throat discomfort. She first noticed this earlier this evening. She believes this to be secondary to starting a new antidepressant venlafaxine extended release about 2-3 days ago. Today was her third dose. She's had some nausea each morning after taking that today she actually vomited 3 times after taking it. She comes to ER with reports of sensation of her tongue swelling "in the back". She denies any trouble breathing or any itching or rash. She did take 2 full dose Benadryl 30 minutes prior to arrival. Timing/Duration: 1-2 Days Severity: Moderate Associated Systoms: No Cough; Nausea/Vomiting (none currently) Allergies and Home Medications Allergies Coded Allergies: Nitrofurantoin Macrocrystal (Verified Allergy, Unknown, HIVES, 01/07/17) nitrofurantoin (Verified Allergy, Unknown, HIVES, 01/07/17) ondansetron HCl (Verified Allergy, Unknown, 01/07/17) Home Medications Cephalexin 500 Mg Capsule, 500 MG PO BID Prescribed by: JOSE CHRISTIANSEN on 08/23/171 Patient Home Medication List Home Medication List Reviewed: Yes Review of Systems Constitutional: see HPI EENTM: see HPI Respiratory: no symptoms reported; No cough, No dyspnea on exertion, No hemoptysis, No orthopnea, No phlegm, No short of breath, No stridor, No wheezing Cardiovascular: no symptoms reported Gastrointestinal: No abdominal pain, No constipation, No diarrhea; nausea, vomiting Genitourinary: no symptoms reported Musculoskeletal: no symptoms reported Skin: no symptoms reported, see HPI; No pruritus, No rash Psychiatric/Neurological: No Symptoms Reported Hematologic/Lymphatic: No Symptoms Reported Immunological/Allergic: no symptoms reported Past Dtiqxqj-Mfaqpo-Wijnee Hx Patient Social History Type Used: Cigarettes 2nd Hand Smoke Exposure: Yes Recent Foreign Travel: No Contact w/Someone Who Travel: No Recent Hopitalizations: No Immunizations Up To Date Tetanus Booster (TDap): Unknown PED Vaccines UTD: Yes Date of Pneumonia Vaccine: Feb 13, 2011 Date of Influenza Vaccine: Feb 13, 2011 Seasonal Allergies Seasonal Allergies: No Past Medical History Surgeries: Yes (D&C) Respiratory: No Cardiac: No Neurological: No Reproductive Disorders: Yes Female Reproductive Disorders: Denies Sexually Transmitted Disease: Yes (Dx chlamydia at beginning of ) HIV/AIDS: No Genitourinary: No Gastrointestinal: No Musculoskeletal: No Endocrine: No HEENT: No Cancer: No Psychosocial: No Integumentary: Yes (h/o mrsa infections of the lt ear) Blood Disorders: No Family Medical History Alcoholism 19 FATHER 19 MOTHER Cardiovascular disease 19 MOTHER Congenital heart disease 19 MOTHER Hypertension 19 MOTHER Myocardial infarction 19 MOTHER No Pertinent Family Hx Physical Exam Vital Signs Vital Signs - First Documented 12/29/17 22:09 Temp 98.1 Pulse 67 Resp 18 B/P (MAP) 129/86 (100) Pulse Ox 100 O2 Delivery Room Air Capillary Refill : Height, Weight, BMI Height: 5'5.00" Weight: 179lbs. 0.0oz. 81.317555bp; 34.2 BMI Method:Stated General Appearance: No Apparent Distress, WD/WN Eyes: Bilateral Eye Normal Inspection, Bilateral Eye PERRL, Bilateral Eye EOMI HEENT: PERRL/EOMI, TMs Normal, Normal ENT Inspection, Pharynx Normal, Moist Mucous Membranes; No Pharyngeal Erythema, No Tonsillar Enlargement; Other (no tongue, uvula or oropharyngeal edema) Neck: Full Range of Motion, Normal Inspection Respiratory: Lungs Clear, Normal Breath Sounds, No Accessory Muscle Use, No Respiratory Distress; No Wheezing Cardiovascular: Regular Rate, Rhythm, Normal Peripheral Pulses Gastrointestinal: Normal Bowel Sounds, Non Tender, Soft Extremity: Normal Capillary Refill, Normal Inspection Neurologic/Psychiatric: Alert, Oriented x3, No Motor/Sensory Deficits Skin: Normal Color, Warm/Dry Progress/Results/Core Measures Suspected Sepsis SIRS Temperature: Pulse: Respiratory Rate: Blood Pressure / Mean: Results/Orders My Orders Orders - COSME RAMIREZ APRN Urine Bedside (12/29/17 22:26) Ua Culture If Indicated (12/29/17 22:26) Vital Signs/I&O 12/29/17 22:09 Temp 98.1 Pulse 67 Resp 18 B/P (MAP) 129/86 (100) Pulse Ox 100 O2 Delivery Room Air Capillary Refill : Departure Impression Primary Impression: Medication adverse effect Disposition: 01 HOME, SELF-CARE Condition: Stable Departure-Patient Inst. Decision time for Depature: 22:49 Referrals: JANE ELAINE (PCP) Primary Care Physician LANIE ARAUJO MD (Family) Primary Care Physician Patient Instructions: Adverse Drug Reactions, Adult Add. Discharge Instructions: 1. Stop taking the venlafaxine. Call your health care provider tomorrow to discuss a different medication. Return to ER for any concerns. All discharge instructions reviewed with patient and/or family. Voiced understanding. COSME RAMIREZ [employer] Dec 29, 2017 22:19
[2017-12-29 22:54] LABS: BILIRUBIN,URINE NEGATIVE (NEGATIVE); CLARITY,URINE CLEAR; COLOR,URINE YELLOW; GLUCOSE, URINE (UA) NEGATIVE (NEGATIVE); KETONES,URINE NEGATIVE (NEGATIVE); LEUKOCYTE ESTERASE ,URINE NEGATIVE (NEGATIVE); NITRITE,URINE NEGATIVE (NEGATIVE); PH,URINE 7 (5-9); PROTEIN,URINE NEGATIVE (NEGATIVE); UROBILINOGEN,URINE NORMAL (NORMAL)
[2017-12-29 23:01] LABS: SQUAMOUS EPITHELIAL CELL,UR RARE /HPF
[2017-12-29 23:07] VITALS: BP 129/86
--- OUTSIDE RECORDS SUMMARY | 2017-12-30 12:42 | XMS REPORT ---
Author Author ALVARO MAVERICK Organization [facility] [place] Address [address] [place] [address] Care Team Providers Care Cost Specialist Name Role Phone VICENTAMAVERICK DUQUE Unavailable PROBLEMS Type Condition ICD9-CM Code [id number] Code Onset Dates Condition Status SNOMED Code Problem Hematuria, unspecified type R31.9 Active 93800480 Problem 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 Active 21703295 Problem Major depressive disorder, single episode, moderate F32.1 Active 99426840 Problem Social phobia F40.10 Active 01316951 Problem Grief reaction F43.20 Active 89921756 Problem Adjustment disorder with depressed mood F43.21 Active 92902416 Problem Adjustment disorder with anxiety F43.22 Active 03452630 ALLERGIES Substance Reaction Event Type Date Status Macrobid anaphylaxis Drug Allergy Aug, Active ENCOUNTERS Encounter Location Date Diagnosis [facility] [place] [address] [address] September, 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 [facility] [place] [id number] [place] [address] Aug, 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 [facility] [place] [id number] [place] [address] Jul, [facility] [place] [address] [address] Jul, Major depressive disorder, single episode, moderate F32.1 [facility] [place] [id number] [place] [address] Jul, Tubal ligation evaluation Z01.818 and General counseling and advice on female contraception Z30.09 [place] [address] [place] [address]- [address] 11 Apr, 2017 Hematuria, unspecified type R31.9 [place] [id number] [place] [address]- [address] 06 Apr, 2017 Dysuria R30.0 ; Gross hematuria R31.0 and Dysfunction of right eustachian tube H69.81 [place] [id number] [place] [address] Feb, Pharyngitis due to other organism J02.8 [place] [id number] [place] [address]- [address] Oct, Acute vaginitis N76.0 [place] [id number] [place] [address] Oct, Dysuria R30.0 ; Vaginal itching L29.8 ; Vaginal discharge N89.8 and Vaginal candidiasis B37.3 [place] [id number] [place] [address] September, Dysuria R30.0 ; Right upper quadrant abdominal pain R10.11 and Acute vaginitis N76.0 [place] [id number] [place] [address] September, Strep throat J02.0 [place] [id number] [place] [address] September, [place] [id number] [place] [address] 7[address] Aug, Grief reaction F43.20 ; Adjustment disorder with anxiety F43.22 ; Adjustment disorder with depressed mood F43.21 and Social phobia F40.10 [place] [address] [place] [address] May, [place] [id number] [place] [address] 8[address] May, [facility] [place] [address] [facility] [id number], [place] [address] May, [facility] [place] [id number] [address] Feb, [facility] [place] [address] [facility] [id number], [place] [address] Jan, [facility] [place] [address] [address] Feb, [facility] [place] [address] [facility] [id number], [place] [address] Feb, [facility] [place] [address] [facility] [id number], [place] [address] Feb, IMMUNIZATIONS No Known Immunizations SOCIAL HISTORY Never Assessed REASON FOR VISIT BH intake Daya PLAN OF CARE Activity Details Follow Up 6 Weeks, prn Reason: VITAL SIGNS Height 65.0 in 2017-08-24 Weight 172.3 lbs 2017-08-24 Heart Rate 72 bpm 2017-08-24 Respiratory Rate 18 2017-08-24 BMI 28.67 kg/m2 2017-08-24 Blood pressure systolic 136 mmHg 2017-08-24 Blood pressure diastolic 72 mmHg 2017-08-24 MEDICATIONS Medication Instructions Dosage Frequency Start Date End Date Duration Status Flonase 50 MCG/ACT Nasally twice a day 1 spray in each nostril 12h Apr, 30 day(s) Not-Taking Celexa 20 MG Orally Once a day 0.5 tablet every day for one week then take 1 tablet daily 24h Aug, 30 day(s) Active Multi Complete Active Pepcid 20 mg Orally twice a day 1 tablet 12h September, 30 day(s) Not-Taking Tessalon Perles 100 mg Orally 3 times a day 1 capsule as needed 8h 20 Feb, 2017 Not-Taking RESULTS No Results PROCEDURES No Known procedures INSTRUCTIONS MEDICATIONS ADMINISTERED No Known Medications MEDICAL (GENERAL) HISTORY Type Description Date Surgical History dilatation and curettage 2014 Surgical History 3 wisdom teeth extraction Hospitalization History childbirth only
--- OUTSIDE RECORDS SUMMARY | 2017-12-30 12:42 | XMS REPORT ---
Author Author MELANI OLIVEROS Organization [facility] Address [address] [place] [address] Care Team Providers Care Neurocritical Care Physician Name Role Phone MELANI OLIVEROS Unavailable PROBLEMS Type Condition ICD9-CM Code [id number] Code Onset Dates Condition Status SNOMED Code Problem Hematuria, unspecified type R31.9 Active 96668422 Problem 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 Active 40604955 Problem Major depressive disorder, single episode, moderate F32.1 Active 24204419 Problem Social phobia F40.10 Active 16477160 Problem Grief reaction F43.20 Active 07397139 Problem Adjustment disorder with depressed mood F43.21 Active 29410203 Problem Adjustment disorder with anxiety F43.22 Active 23118711 ALLERGIES No Information ENCOUNTERS Encounter Location Date Diagnosis [facility] [address] [place] [address] Nov, [place] [id number] [place] [address] Nov, [facility] [id number] [place] [address] September, 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 [facility] [address] [address] Aug, 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 [facility] [id number] [place] [address]- [address] Jul, [facility] [address] [place] [address] 81704- [address] Jul, Major depressive disorder, single episode, moderate F32.1 [place] [id number] [place] [address] 50679- [address] 19 Jul, 2017 Tubal ligation evaluation Z01.818 and General counseling and advice on female contraception Z30.09 [place] [id number] [place] [address]- 28[address] 11 Apr, 2017 Hematuria, unspecified type R31.9 [place] [address] [address] 06 Apr, 2017 Dysuria R30.0 ; Gross hematuria R31.0 and Dysfunction of right eustachian tube H69.81 [place] [address] [address] Feb, Pharyngitis due to other organism J02.8 [place] [address] [address] Oct, Acute vaginitis N76.0 [place] [id number] [place] [address]01- 7[address] 15 Oct, 2016 Dysuria R30.0 ; Vaginal itching L29.8 ; Vaginal discharge N89.8 and Vaginal candidiasis B37.3 [place] [id number] [place] [address]- 35[address] September, Dysuria R30.0 ; Right upper quadrant abdominal pain R10.11 and Acute vaginitis N76.0 [place] [id number] [place] [address] 70771- 8[address] September, Strep throat J02.0 [place] [address] [address] September, [place] [address] [address] Aug, Grief reaction F43.20 ; Adjustment disorder with anxiety F43.22 ; Adjustment disorder with depressed mood F43.21 and Social phobia F40.10 [place] [address] [place] [address] May, [facility] [address] [address] May, [facility] [address] [address] May, [facility] [address] [place] [address] Feb, [facility] [address] [place] [address] Jan, [facility] [address], [place] [address] Feb, [facility] [address], [place] [address] Feb, [facility] [address] [place] [address] Feb, IMMUNIZATIONS No Known Immunizations SOCIAL HISTORY Never Assessed REASON FOR VISIT Deferred Lab Order PLAN OF CARE VITAL SIGNS MEDICATIONS Unknown Medications RESULTS No Results PROCEDURES No Known procedures INSTRUCTIONS MEDICATIONS ADMINISTERED No Known Medications MEDICAL (GENERAL) HISTORY Type Description Date Surgical History dilatation and curettage 2014 Surgical History 3 wisdom teeth extraction Hospitalization History childbirth only
--- OUTSIDE RECORDS SUMMARY | 2017-12-30 12:42 | XMS REPORT ---
Author Author SHERRY Baker Organization [facility] Address [address] [place] [address] Care Team Providers Care Counselor Education Professor Name Role Phone SHERRY Baker Unavailable PROBLEMS Type Condition ICD9-CM Code HOB22-GM Code Onset Dates Condition Status SNOMED Code Problem Hematuria, unspecified type R31.9 Active 52756056 Problem 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 Active 58919698 Problem Major depressive disorder, single episode, moderate F32.1 Active 72461839 Problem Social phobia F40.10 Active 78564563 Problem Grief reaction F43.20 Active 33704041 Problem Adjustment disorder with depressed mood F43.21 Active 21910894 Problem Adjustment disorder with anxiety F43.22 Active 11945656 ALLERGIES Substance Reaction Event Type Date Status Macrobid anaphylaxis Drug Allergy Jul, Active ENCOUNTERS Encounter Location Date Diagnosis [place] [id number] [place] [address] September, 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 [place] [id number] [place] [address] 74[address]- [address] Aug, 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 [facility] [address] [place] [address]- [address] Jul, [place] [id number] [place] [address]- [address] Jul, Major depressive disorder, single episode, moderate F32.1 [facility] [id number] [place] [address] 23653- 0074 Jul, Tubal ligation evaluation Z01.818 and General counseling and advice on female contraception Z30.09 [place] [address] [place] [address] 37729- 4679 11 Apr, 2017 Hematuria, unspecified type R31.9 [place] [id number] [place] [address] 59[address]- [address] 06 Apr, 2017 Dysuria R30.0 ; Gross hematuria R31.0 and Dysfunction of right eustachian tube H69.81 [place] [id number] [place] [address]37[address]- [address] Feb, Pharyngitis due to other organism J02.8 [place] [id number] [place] [address] 18967- 4517 Oct, Acute vaginitis N76.0 [place] [id number] [place] [address] 96657- 487[address] 15 Oct, 2016 Dysuria R30.0 ; Vaginal itching L29.8 ; Vaginal discharge N89.8 and Vaginal candidiasis B37.3 [place] [id number] [place] [address] 30616- 0[address] September, Dysuria R30.0 ; Right upper quadrant abdominal pain R10.11 and Acute vaginitis N76.0 [place] [id number] [place] [address] 78567- 0[address] September, Strep throat J02.0 [place] [id number] [place] [address] 14651- 5[address] September, [place] [id number] [place] [address] 12744- 48[address] Aug, Grief reaction F43.20 ; Adjustment disorder with anxiety F43.22 ; Adjustment disorder with depressed mood F43.21 and Social phobia F40.10 [place] [address] [place] [address]55- 9062 May, [place] [id number] [place] [address]88- [address] May, [facility] [address] [facility] [id number] [address] May, [facility] [address] [id number] [address] Feb, [facility] [address] [facility] [id number] [address] Jan, [facility] [id number] [address] Feb, [facility] [address] [facility] [id number], [place] [address] Feb, [facility] [address] [facility] [id number] [address] Feb, IMMUNIZATIONS No Known Immunizations SOCIAL HISTORY Never Assessed REASON FOR VISIT Requesting referal for tubal ligation-----Giorgi PLAN OF CARE Activity Details Follow Up referral to OB-DIGITAL TECH Reason: VITAL SIGNS Height 65.0 in 2017-08-01 Weight 172 lbs 2017-08-01 Temperature 97.8 degrees Fahrenheit 2017-08-01 Heart Rate 80 bpm 2017-08-01 Respiratory Rate 20 2017-08-01 BMI 28.62 kg/m2 2017-08-01 Blood pressure systolic 122 mmHg 2017-08-01 Blood pressure diastolic 68 mmHg 2017-08-01 MEDICATIONS Medication Instructions Dosage Frequency Start Date End Date Duration Status Flonase 50 MCG/ACT Nasally twice a day 1 spray in each nostril 12h Apr, 30 day(s) Not-Taking Tessalon Perles 100 mg Orally 3 times a day 1 capsule as needed 8h 20 Feb, 2017 Not-Taking Pepcid 20 mg Orally twice a day 1 tablet 12h September, 30 day(s) Not-Taking RESULTS No Results PROCEDURES No Known procedures INSTRUCTIONS MEDICATIONS ADMINISTERED No Known Medications MEDICAL (GENERAL) HISTORY Type Description Date Surgical History dilatation and curettage 2014 Surgical History 3 wisdom teeth extraction Hospitalization History childbirth only
--- OUTSIDE RECORDS SUMMARY | 2017-12-30 12:42 | XMS REPORT ---
Author Author SHERRY Baker Organization [facility] Address [address] [place] [address] Care Team Providers Care Security Intelligence Analyst Name Role Phone SHERRY Baker Unavailable PROBLEMS Type Condition ICD9-CM Code [id number] Code Onset Dates Condition Status SNOMED Code Problem Hematuria, unspecified type R31.9 Active 06514648 Problem 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 Active 01689800 Problem Major depressive disorder, single episode, moderate F32.1 Active 72375217 Problem Social phobia F40.10 Active 80004109 Problem Grief reaction F43.20 Active 68021185 Problem Adjustment disorder with depressed mood F43.21 Active 24624554 Problem Adjustment disorder with anxiety F43.22 Active 75107902 ALLERGIES No Information ENCOUNTERS Encounter Location Date Diagnosis [place] [id number] [place] [address] 84058- 0407 September, 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 [place] [address] [place] [address] 91215- 7708 Aug, 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 [place] [id number] [place] [address] 94719- 3261 Jul, [place] [id number] [place] [address] 76645- 0106 Jul, Major depressive disorder, single episode, moderate F32.1 [facility] [id number] [place] [address] 51242- 2406 Jul, Tubal ligation evaluation Z01.818 and General counseling and advice on female contraception Z30.09 [place] [id number] [place] [address] 08661- 4139 11 Apr, 2017 Hematuria, unspecified type R31.9 [place] [id number] [place] [address] 90341- 5601 Apr, Dysuria R30.0 ; Gross hematuria R31.0 and Dysfunction of right eustachian tube H69.81 [place] [id number] [place] [address] 46733- 6483 Feb, Pharyngitis due to other organism J02.8 [place] [id number] [place] [address] 04558- 1352 Oct, Acute vaginitis N76.0 [place] [id number] [place] [address] 50960- 8409 15 Oct, 2016 Dysuria R30.0 ; Vaginal itching L29.8 ; Vaginal discharge N89.8 and Vaginal candidiasis B37.3 [place] [id number] [place] [address] 63424- 2387 September, Dysuria R30.0 ; Right upper quadrant abdominal pain R10.11 and Acute vaginitis N76.0 [place] [id number] [place] [address] 34494- 4597 September, Strep throat J02.0 [place] [id number] [place] [address] 14482- 4787 September, [place] [id number] [place] [address] 03420- 6902 Aug, Grief reaction F43.20 ; Adjustment disorder with anxiety F43.22 ; Adjustment disorder with depressed mood F43.21 and Social phobia F40.10 [place] [address] [place] [address] 63010- 7786 May, [place] [address] [place] [address] 99200- 5318 May, [place] [id number] [address] 2546 May, [facility] [address] [address] 9715 Feb, [facility] [address] [address] 2546 Jan, [facility] [address] [address]- 0384 Feb, [facility] [address] [address]- 8640 Feb, [facility] [address] [address] 5808 Feb, IMMUNIZATIONS No Known Immunizations SOCIAL HISTORY Never Assessed REASON FOR VISIT FYI only PLAN OF CARE VITAL SIGNS MEDICATIONS No Known Medications RESULTS No Results PROCEDURES No Known procedures INSTRUCTIONS MEDICATIONS ADMINISTERED No Known Medications MEDICAL (GENERAL) HISTORY Type Description Date Surgical History dilatation and curettage 2014 Surgical History 3 wisdom teeth extraction Hospitalization History childbirth only
--- OUTSIDE RECORDS SUMMARY | 2017-12-30 12:42 | XMS REPORT ---
Author Author USMAN LATHAM Organization [facility] Address [address] [place] [address] Care Team Providers Care Weaving Machine Operator Name Role Phone SUMAN LATHAM Unavailable PROBLEMS Type Condition ICD9-CM Code [id number] Code Onset Dates Condition Status SNOMED Code Problem Hematuria, unspecified type R31.9 Active 40191537 Problem 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 Active 46873248 Problem Major depressive disorder, single episode, moderate F32.1 Active 24284107 Problem Social phobia F40.10 Active 60949417 Problem Grief reaction F43.20 Active 58699497 Problem Adjustment disorder with depressed mood F43.21 Active 99137308 Problem Adjustment disorder with anxiety F43.22 Active 42531207 ALLERGIES No Information ENCOUNTERS Encounter Location Date Diagnosis [place] [id number] [place] [address] 99513- 8985 September, 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 [place] [id number] [place] [address] 87199- 0318 Aug, 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 [place] [address] [place] [address] 50866- 7830 Jul, [place] [id number] [place] [address] 23219- 1114 Jul, Major depressive disorder, single episode, moderate F32.1 [facility] [id number] [place] [address] 30189- 7710 Jul, Tubal ligation evaluation Z01.818 and General counseling and advice on female contraception Z30.09 [place] [id number] [place] [address] 10005- 7769 Apr, Hematuria, unspecified type R31.9 [place] [id number] [place] [address] 34174- 4318 Apr, Dysuria R30.0 ; Gross hematuria R31.0 and Dysfunction of right eustachian tube H69.81 [place] [id number] [place] [address] 75102- 0656 Feb, Pharyngitis due to other organism J02.8 [place] [id number] [place] [address] 35371- 3813 Oct, Acute vaginitis N76.0 [place] [address] 40824- 7573 Oct, Dysuria R30.0 ; Vaginal itching L29.8 ; Vaginal discharge N89.8 and Vaginal candidiasis B37.3 [place] [address] 72654- 7544 September, Dysuria R30.0 ; Right upper quadrant abdominal pain R10.11 and Acute vaginitis N76.0 [place] [address] 30603- 0043 September, Strep throat J02.0 [place] [id number] [place] [address] 25792- 3625 September, [place] [id number] [place] [address] 19278- 6318 Aug, Grief reaction F43.20 ; Adjustment disorder with anxiety F43.22 ; Adjustment disorder with depressed mood F43.21 and Social phobia F40.10 [place] [id number] [place] [address] 21881- 2396 May, [place] [id number] [place] [address] 98875- 7313 May, [place] [address] 90683- 2546 May, [facility] [address] [facility] [id number] [address] 2546 Feb, [facility] [id number] [address]- 2546 Jan, [facility] [address] [facility] [id number] [address]- 2546 Feb, [facility] [id number] [address]- 2546 Feb, [facility] [address] [facility] [id number] [address] 2546 Feb, IMMUNIZATIONS No Known Immunizations SOCIAL HISTORY Never Assessed REASON FOR VISIT BH intake, Depression. PLAN OF CARE Activity Details Follow Up 1 Week Reason:depression VITAL SIGNS MEDICATIONS No Known Medications RESULTS No Results PROCEDURES Procedure Date Ordered Result Body Site Psych diagnostic evaluation, established patient August 05, 2017 INSTRUCTIONS MEDICATIONS ADMINISTERED No Known Medications MEDICAL (GENERAL) HISTORY Type Description Date Surgical History dilatation and curettage 2014 Surgical History 3 wisdom teeth extraction Hospitalization History childbirth only
--- OUTSIDE RECORDS SUMMARY | 2017-12-30 12:42 | XMS REPORT ---
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 Active 58253850 Problem Major depressive disorder, single episode, moderate F32.1 Active 10731576 Problem Social phobia F40.10 Active 42746128 Problem Grief reaction F43.20 Active 62153766 Problem Adjustment disorder with depressed mood F43.21 Active 84066334 Problem Adjustment disorder with anxiety F43.22 Active 82815538 ALLERGIES No Information ENCOUNTERS Encounter Location Date Diagnosis [facility] [id number] [place] [address] 54144- 9825 Jan, [facility] [id number] [place] [address] 32861- 1160 Dec, [facility] [id number] [place] [address] 87795- 3882 Dec, 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 [facility] [address] [place] [address] 52068- 7720 September, 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 [facility] [id number] [place] [address] 17192- 7498 Aug, 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 [facility] [id number] [place] [address] 11595- 7708 Jul, [place] [address] [place] [address] 67759- 1758 Jul, Major depressive disorder, single episode, moderate F32.1 [place] [id number] [place] [address] 89860- 2149 Jul, Tubal ligation evaluation Z01.818 and General counseling and advice on female contraception Z30.09 [place] [address] 06544- 3680 11 Apr, 2017 Hematuria, unspecified type R31.9 [place] [id number] [place] [address] 89266- 6361 06 Apr, 2017 Dysuria R30.0 ; Gross hematuria R31.0 and Dysfunction of right eustachian tube H69.81 [place] [id number] [place] [address] 08600- 2058 Feb, Pharyngitis due to other organism J02.8 [place] [id number] [place] [address] 73124- 3244 Oct, Acute vaginitis N76.0 [place] [id number] [place] [address] 11480- 0721 Oct, Dysuria R30.0 ; Vaginal itching L29.8 ; Vaginal discharge N89.8 and Vaginal candidiasis B37.3 [place] [id number] [place] [address] 01530- 7357 September, Dysuria R30.0 ; Right upper quadrant abdominal pain R10.11 and Acute vaginitis N76.0 [place] [id number] [place] [address] 88362- 0761 September, Strep throat J02.0 [place] [id number] [place] [address] 09268- 7229 September, [place] [id number] [place] [address] 56953- 3203 Aug, Grief reaction F43.20 ; Adjustment disorder with anxiety F43.22 ; Adjustment disorder with depressed mood F43.21 and Social phobia F40.10 [facility] [address] [address]- 3076 May, [facility] [address], [place] [address]- 2757 May, [facility] [id number] [place] [address] 07018- 2501 May, [facility] [id number] [place] [address] 08474- 8174 Feb, [facility] [id number] [place] [address] 23753- 1881 Jan, [facility] [id number] [place] [address] 22165- 6756 Feb, [facility] [address] [place] [address] 17029- 7222 Feb, [facility] [address], [place] [address]- 5965 Feb, IMMUNIZATIONS No Known Immunizations SOCIAL HISTORY Never Assessed REASON FOR VISIT bethanie/Sindi REYES PLAN OF CARE Activity Details Follow Up 2 Months, prn Reason: VITAL SIGNS Height 65.0 in 2017-09-28 Weight 174.5 lbs 2017-09-28 Heart Rate 76 bpm 2017-09-28 Respiratory Rate 18 2017-09-28 BMI 29.04 kg/m2 2017-09-28 Blood pressure systolic 110 mmHg 2017-09-28 Blood pressure diastolic 62 mmHg 2017-09-28 MEDICATIONS Medication Instructions Dosage Frequency Start Date End Date Duration Status Celexa 20 MG Orally Once a day 1 tablet 24h 11 Aug, 2017 30 days Active Multi Complete Active Pepcid 20 mg Orally twice a day 1 tablet 12h September, 30 day(s) Not-Taking Tessalon Perles 100 mg Orally 3 times a day 1 capsule as needed 8h 20 Feb, 2017 Not-Taking Flonase 50 MCG/ACT Nasally twice a day 1 spray in each nostril 12h Apr, 30 day(s) Not-Taking RESULTS No Results PROCEDURES No Known procedures INSTRUCTIONS MEDICATIONS ADMINISTERED No Known Medications MEDICAL (GENERAL) HISTORY Type Description Date Surgical History dilatation and curettage 2014 Surgical History 3 wisdom teeth extraction Hospitalization History childbirth only
--- OUTSIDE RECORDS SUMMARY | 2017-12-30 12:42 | XMS REPORT ---
Author Author MELANI OLIVEROS Organization [facility] Address [address] [place] [address] Care Team Providers Care Etcher Aircraft Name Role Phone MELANI OLIVEROS Unavailable PROBLEMS Type Condition ICD9-CM Code SOQ55-DL Code Onset Dates Condition Status SNOMED Code Problem Hematuria, unspecified type R31.9 Active 20831448 Problem 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 Active 31985210 Problem Major depressive disorder, single episode, moderate F32.1 Active 03957830 Problem Social phobia F40.10 Active 38629846 Problem Grief reaction F43.20 Active 83152815 Problem Adjustment disorder with depressed mood F43.21 Active 37000534 Problem Adjustment disorder with anxiety F43.22 Active 95713430 ALLERGIES Substance Reaction Event Type Date Status Macrobid anaphylaxis Drug Allergy Apr, Active ENCOUNTERS Encounter Location Date Diagnosis [facility] [address] [place] [address] 79261- 3658 Nov, [facility] [address] [place] [address] 56616- 2913 Nov, [facility] [id number] [place] [address] 26030- 8837 September, 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 [facility] [address], [place] [address]- 2951 Aug, 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 [facility] [id number] [address]- 8876 Jul, [facility] [id number] [place] [address] 81172- 9313 Jul, Major depressive disorder, single episode, moderate F32.1 [place] [id number] [place] [address] 44260- 6104 19 Jul, 2017 Tubal ligation evaluation Z01.818 and General counseling and advice on female contraception Z30.09 [place] [id number] [place] [address] 72330- 5370 11 Apr, 2017 Hematuria, unspecified type R31.9 [place] [id number] [place] [address] 23524- 7774 06 Apr, 2017 Dysuria R30.0 ; Gross hematuria R31.0 and Dysfunction of right eustachian tube H69.81 [place] [id number] [place] [address] 93493- 5342 Feb, Pharyngitis due to other organism J02.8 [place] [id number] [place] [address] 54944- 7118 Oct, Acute vaginitis N76.0 [place] [id number] [place] [address] 34426- 1602 Oct, Dysuria R30.0 ; Vaginal itching L29.8 ; Vaginal discharge N89.8 and Vaginal candidiasis B37.3 [place] [id number] [place] [address] 92735- 2482 September, Dysuria R30.0 ; Right upper quadrant abdominal pain R10.11 and Acute vaginitis N76.0 [place] [id number] [place] [address] 81024- 1976 September, Strep throat J02.0 [place] [id number] [place] [address] 78126- 5506 September, [place] [id number] [place] [address] 48146- 3420 Aug, Grief reaction F43.20 ; Adjustment disorder with anxiety F43.22 ; Adjustment disorder with depressed mood F43.21 and Social phobia F40.10 [facility] [address], [place] [address]- 1406 May, [facility] [address], [place] [address]- 0916 May, [facility] [address], [place] [address]- 5762 May, [facility] [id number] [place] [address] 59273- 0711 Feb, [facility] [address], [place] [address]- 2384 Jan, [facility] [id number] [place] [address] 25541- 0981 Feb, [facility] [address], [place] [address]- 4914 Feb, [facility] [address], [place] [address]- 5396 Feb, IMMUNIZATIONS No Known Immunizations SOCIAL HISTORY Never Assessed REASON FOR VISIT Congestion for about a week, back pain and blood in urine--Nimo Martino MA PLAN OF CARE Activity Details Follow Up prn Reason: VITAL SIGNS Height 65.0 in 2017-04-20 Weight 179.9 lbs 2017-04-20 Temperature 98.4 degrees Fahrenheit 2017-04-20 Heart Rate 92 bpm 2017-04-20 Respiratory Rate 20 2017-04-20 BMI 29.93 kg/m2 2017-04-20 Blood pressure systolic 118 mmHg 2017-04-20 Blood pressure diastolic 86 mmHg 2017-04-20 MEDICATIONS Medication Instructions Dosage Frequency Start Date End Date Duration Status Tessalon Perles 100 mg Orally 3 times a day 1 capsule as needed 8h Feb, Not-Taking Pepcid 20 mg Orally twice a day 1 tablet h September, 30 day(s) Not-Taking Flonase 50 MCG/ACT Nasally twice a day 1 spray in each nostril h Apr, 30 day(s) Active Cipro 500 mg Orally Twice a day 1 tablet Apr, Apr, 10 day(s) Active RESULTS No Results PROCEDURES Procedure Date Ordered Result Body Site URINALYSIS, AUTO, W/O SCOPE Apr 20, 2017 [facility] Apr 20, 2017 INSTRUCTIONS MEDICATIONS ADMINISTERED No Known Medications MEDICAL (GENERAL) HISTORY Type Description Date Surgical History dilatation and curettage 2014 Surgical History 3 wisdom teeth extraction Hospitalization History childbirth only
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
== END 2017-12-29 23:07 | disposition home or self-care (01) ==
LOC: EDUNIT# 22:01 → ER 22:02
DX: R61 Generalized hyperhidrosis (principal); R11.0 Nausea; R07.0 Pain in throat; R68.83 Chills (without fever); T43.215A Adverse effect of selective serotonin and norepinephrine reuptake inhibitors, initial encounter; Z88.8 Allergy status to other drugs, medicaments and biological substances; Z77.22 Contact with and (suspected) exposure to environmental tobacco smoke (acute) (chronic); Z82.49 Family history of ischemic heart disease and other diseases of the circulatory system
CPT/HCPCS: 81000; 84703; 99282

== ENCOUNTER 2018-05-04 22:33 | Emergency (ER) | payer MEDICAID ==
[~2018-05-04] VITALS: Ht 167.6 cm; Wt 83.9 kg
--- OUTSIDE RECORDS SUMMARY | 2018-05-04 22:38 | XMS REPORT ---
Author Author ALVARO MAVERICK [facility] Address [address] [place] [address] Care Team Providers Care Boot Turner Name Role Phone VICENTAMAVERICK DUQUE Unavailable PROBLEMS Type Condition ICD9-CM Code WJZ08-TO Code Onset Dates Condition Status SNOMED Code Problem Hematuria, unspecified type R31.9 Active 99831879 Problem Social phobia F40.10 Active 03239403 Problem Grief reaction F43.20 Active 42695459 Problem Obesity (BMI 30.0-34.9) E66.9 Active 989148392089616 Problem Chronic fatigue R53.82 Active 28878317 Problem Adjustment disorder with depressed mood F43.21 Active 50646737 Problem Adjustment disorder with anxiety F43.22 Active 46106072 Problem 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 Active 74666203 Problem Major depressive disorder, single episode, moderate F32.1 Active 45481518 ALLERGIES Substance Reaction Event Type Date Status Macrobid anaphylaxis Drug Allergy Dec, Active ENCOUNTERS Encounter Location Date Diagnosis [place] [address] [place] [address] [id number] [place] [address]689[address] Jan, [place] [id number] [place] [address] 85801- 6034 Jan, [facility] [id number] [place] [address] 76993- 1123 Dec, Encounter for immunization Z23 [place] [address] [address] Dec, Obesity (BMI 30.0-34.9) E66.9 ; Chronic fatigue R53.82 ; Encounter for initial prescription of injectable contraceptive Z30.013 and Encounter for Depo-Provera contraception Z30.42 [place] [address] [place] [address] Dec, 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 [place] [id number] [place] [address] 81907- 5245 September, 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 [place] [id number] [place] [address] 40602- 7885 Aug, 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 [place] [id number] [place] [address] 63269- 6580 Jul, [place] [id number] [place] [address] 16914- 1196 Jul, Major depressive disorder, single episode, moderate F32.1 [place] [id number] [place] [address] 12831- 7283 Jul, Tubal ligation evaluation Z01.818 and General counseling and advice on female contraception Z30.09 [place] [id number] [place] [address] 08749- 0529 Apr, Hematuria, unspecified type R31.9 [place] [id number] [place] [address] 14909- 9473 06 Apr, 2017 Dysuria R30.0 ; Gross hematuria R31.0 and Dysfunction of right eustachian tube H69.81 [place] [id number] [place] [address] 01897- 1753 Feb, Pharyngitis due to other organism J02.8 [place] [id number] [place] [address] 00963- 4977 Oct, Acute vaginitis N76.0 [place] [id number] [place] [address] 45221- 9946 15 Oct, 2016 Dysuria R30.0 ; Vaginal itching L29.8 ; Vaginal discharge N89.8 and Vaginal candidiasis B37.3 [place] [address] [address] September, Dysuria R30.0 ; Right upper quadrant abdominal pain R10.11 and Acute vaginitis N76.0 [place] [id number] [place] [address] 89036- 4498 September, Strep throat J02.0 [place] [id number] [place] [address] 15061- 6505 September, [place] [id number] [place] [address] 06908- 3614 Aug, Grief reaction F43.20 ; Adjustment disorder with anxiety F43.22 ; Adjustment disorder with depressed mood F43.21 and Social phobia F40.10 [place] [id number] [place] [address] 92174- 1219 May, [place] [id number] [place] [address] 53916- 5032 May, [place] [id number] [place] [address] 86203- 9161 May, [place] [id number] [place] [address] 85588- 0376 Feb, [place] [address] [place] [address] 79210- 4350 Jan, [place] [id number] [place] [address] 15777- 9265 Feb, [place] [id number] [place] [address] 57042- 8018 Feb, [place] [id number] [place] [address] 44278- 8462 Feb, IMMUNIZATIONS No Known Immunizations SOCIAL HISTORY Never Assessed REASON FOR VISIT f/u Daya PLAN OF CARE Activity Details Follow Up 6 Weeks Reason: VITAL SIGNS Height 65.0 in 2017-12-26 Weight 182.1 lbs 2017-12-26 Heart Rate 68 bpm 2017-12-26 Respiratory Rate 20 2017-12-26 BMI 30.30 kg/m2 2017-12-26 Blood pressure systolic 122 mmHg 2017-12-26 Blood pressure diastolic 76 mmHg 2017-12-26 MEDICATIONS Medication Instructions Dosage Frequency Start Date End Date Duration Status Effexor XR 75 MG Orally Once a day 1 capsule with food 24h Dec, 30 day(s) Active Effexor XR 37.5 MG Orally Once a day 1 capsule with food 24h Dec, 7 days Active RESULTS No Results PROCEDURES No Known procedures INSTRUCTIONS MEDICATIONS ADMINISTERED No Known Medications MEDICAL (GENERAL) HISTORY Type Description Date Surgical History dilatation and curettage 2014 Surgical History 3 wisdom teeth extraction Hospitalization History childbirth only
--- OUTSIDE RECORDS SUMMARY | 2018-05-04 22:38 | XMS REPORT ---
Author Author LATOSHA MAZARIEGOS [facility] Address [address] [place] [address] Care Team Providers Care Change Lead Name Role Phone DELILAH LATOSHA Unavailable PROBLEMS Type Condition ICD9-CM Code IHM26-ZV Code Onset Dates Condition Status SNOMED Code Problem Hematuria, unspecified type R31.9 Active 73719325 Problem Social phobia F40.10 Active 95782755 Problem Grief reaction F43.20 Active 77191396 Problem Obesity (BMI 30.0-34.9) E66.9 Active 553375926083211 Problem Chronic fatigue R53.82 Active 61116690 Problem Adjustment disorder with depressed mood F43.21 Active 87535819 Problem Adjustment disorder with anxiety F43.22 Active 17299475 Problem 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 Active 97712178 Problem Major depressive disorder, single episode, moderate F32.1 Active 48311603 ALLERGIES No Information ENCOUNTERS Encounter Location Date Diagnosis [place] [address] [address] Jan, [place] [address] [address] Dec, Encounter for immunization Z23 [place] [address] [address] Dec, Obesity (BMI 30.0-34.9) E66.9 ; Chronic fatigue R53.82 ; Encounter for initial prescription of injectable contraceptive Z30.013 and Encounter for Depo-Provera contraception Z30.42 [place] [address] [address] [id number] [place] [address] 94364- 5603 Dec, 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 [place] [address] [address]- [address] September, 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 [place] [address] [address] [id number] [place] [address] 73736- 5760 Aug, 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 [place] [address] [address] [id number] [place] [address] 05135- 7941 Jul, [place] [address] [id number] [place] [address] 84420- 5069 Jul, Major depressive disorder, single episode, moderate F32.1 [place] [address] [address]- [address] Jul, Tubal ligation evaluation Z01.818 and General counseling and advice on female contraception Z30.09 [place] [address] 99[address]- [address] 11 Apr, 2017 Hematuria, unspecified type R31.9 [place] [address] [id number] [place] [address] 42731- 8989 06 Apr, 2017 Dysuria R30.0 ; Gross hematuria R31.0 and Dysfunction of right eustachian tube H69.81 [place] [address] [id number] [place] [address] 24320- 1565 Feb, Pharyngitis due to other organism J02.8 [place] [address] [address] [id number] [place] [address] 28209- 1567 Oct, Acute vaginitis N76.0 [place] [address] [id number] [place] [address] 70766- 5624 Oct, Dysuria R30.0 ; Vaginal itching L29.8 ; Vaginal discharge N89.8 and Vaginal candidiasis B37.3 [place] [address] [id number] [place] [address] 38343- 6818 September, Dysuria R30.0 ; Right upper quadrant abdominal pain R10.11 and Acute vaginitis N76.0 [facility] [id number] [place] [address] 40831- 1197 15 Sep, 2016 Strep throat J02.0 [facility] [address] [id number] [place] [address] 15608- 8844 05 Sep, 2016 [facility] [address] [id number] [place] [address] 93183- 1295 Aug, Grief reaction F43.20 ; Adjustment disorder with anxiety F43.22 ; Adjustment disorder with depressed mood F43.21 and Social phobia F40.10 [place] [address] [id number] [place] [address] 34916- 2444 May, [facility] [address] [id number] [place] [address] 45295- 5094 May, [place] [address] [id number] [place] [address] 91452- 1688 May, [facility] [id number] [place] [address] 25735- 2427 Feb, [facility] [address] [id number] [place] [address] 09160- 0579 Jan, [facility] [address] [id number] [place] [address] 68958- 4166 Feb, [place] [address] [address] [id number] [place] [address] 37882- 4067 Feb, [facility] [address] [id number] [place] [address] 55182- 6349 Feb, IMMUNIZATIONS Vaccine Route Administration Date Status TDAP (BOOSTRIX) IM Intramuscular Jan 09, 2018 Administered SOCIAL HISTORY Never Assessed REASON FOR VISIT Immunization----DBennettRN PLAN OF CARE VITAL SIGNS MEDICATIONS Unknown Medications RESULTS No Results PROCEDURES Procedure Date Ordered Result Body Site TDAP (BOOSTRIX) Jan 09, 2018 SINGLE IMMUNIZATION ADMIN Jan 09, 2018 INSTRUCTIONS MEDICATIONS ADMINISTERED No Known Medications MEDICAL (GENERAL) HISTORY Type Description Date Surgical History dilatation and curettage 2014 Surgical History 3 wisdom teeth extraction Hospitalization History childbirth only
--- OUTSIDE RECORDS SUMMARY | 2018-05-04 22:38 | XMS REPORT ---
Author Author TAMIR WATSON [facility] Address [address] [place] [address] Care Team Providers Care Icebox Man Name Role Phone TAMIR WATSON Unavailable PROBLEMS Type Condition ICD9-CM Code TIY89-QL Code Onset Dates Condition Status SNOMED Code Problem Hematuria, unspecified type R31.9 Active 70930475 Problem Social phobia F40.10 Active 82454926 Problem Grief reaction F43.20 Active 90824662 Problem Obesity (BMI 30.0-34.9) E66.9 Active 640495197833433 Problem Chronic fatigue R53.82 Active 04661372 Problem Adjustment disorder with depressed mood F43.21 Active 37332483 Problem Adjustment disorder with anxiety F43.22 Active 08591809 Problem 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 Active 68068245 Problem Major depressive disorder, single episode, moderate F32.1 Active 91044534 ALLERGIES Substance Reaction Event Type Date Status Macrobid anaphylaxis Drug Allergy Dec, Active ENCOUNTERS Encounter Location Date Diagnosis [place] [id number] [place] [address] [phone] Jan, [facility] [id number] [place] [address] [phone]- [phone] Dec, Encounter for immunization Z23 [facility] [address] [place] [id number] [place] [address] 10535- [phone] Dec, Obesity (BMI 30.0-34.9) E66.9 ; Chronic fatigue R53.82 ; Encounter for initial prescription of injectable contraceptive Z30.013 and Encounter for Depo-Provera contraception Z30.42 [facility] [id number] [address] Dec, 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 [place] [address] [place] [address] 32387- [phone] September, 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 [place] [address] [place] [id number] [place] [address] 49350- 6476 Aug, 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 [place] [address] [place] [id number] [place] [address] 06816- 4461 Jul, [place] [address] [phone] Jul, Major depressive disorder, single episode, moderate F32.1 [place] [address] [place] [id number] [place] [address] 54492- 9271 Jul, Tubal ligation evaluation Z01.818 and General counseling and advice on female contraception Z30.09 [place] [address] [place] [id number] [place] [address] 52359- [phone] 11 Apr, 2017 Hematuria, unspecified type R31.9 [place] [address] [place] [id number] [place] [address] [phone]- [phone] 06 Apr, 2017 Dysuria R30.0 ; Gross hematuria R31.0 and Dysfunction of right eustachian tube H69.81 [place] [address] [place] [id number] [place] [address] 97313- [phone] Feb, Pharyngitis due to other organism J02.8 [place] [address] [place] [id number] [place] [address] 53574- 3341 Oct, Acute vaginitis N76.0 [place] [address] [place] [id number] [place] [address] [phone]- [phone] 15 Oct, 2016 Dysuria R30.0 ; Vaginal itching L29.8 ; Vaginal discharge N89.8 and Vaginal candidiasis B37.3 [place] [address] [place] [id number] [place] [address] 08819- 4777 September, Dysuria R30.0 ; Right upper quadrant abdominal pain R10.11 and Acute vaginitis N76.0 [place] [address] [place] [id number] [place] [address] 25292- 0398 September, Strep throat J02.0 [place] [address] [place] [id number] [place] [address] [phone]- [phone] September, [place] [address] [place] [id number] [place] [address] [phone]- [phone] Aug, Grief reaction F43.20 ; Adjustment disorder with anxiety F43.22 ; Adjustment disorder with depressed mood F43.21 and Social phobia F40.10 [place] [address] [place] [id number] [place] [address] 68598- [phone] May, [place] [address] [place] [id number] [place] [address] 81983- [phone] May, [place] [address] [place] [id number] [place] [address] 45537- [phone] May, [place] [address] [place] [id number] [place] [address] 38876- [phone] Feb, [place] [address] [place] [id number] [place] [address] 34506- [phone] Jan, [place] [address] [place] [id number] [place] [address] [phone]- [phone] Feb, [place] [address] [place] [id number] [place] [address] [phone] Feb, [place] [address] [place] [id number] [place] [address] [phone] Feb, IMMUNIZATIONS Vaccine Route Administration Date Status DEPO PROVERA (150 MG/ML) IM Intramuscular Jan 03, 2018 Administered SOCIAL HISTORY Never Assessed REASON FOR VISIT New provider visit , patient states she ahs been trying to lose weight and is not losing any -- rom moreno PLAN OF CARE Activity Details Follow Up 4 Weeks Reason:wt loss VITAL SIGNS Height 65.0 in 2018-01-03 Weight 184.0 lbs 2018-01-03 Temperature 98.7 degrees Fahrenheit 2018-01-03 Heart Rate 72 bpm 2018-01-03 Respiratory Rate 18 2018-01-03 BMI 30.62 kg/m2 2018-01-03 Blood pressure systolic 118 mmHg 2018-01-03 Blood pressure diastolic 70 mmHg 2018-01-03 MEDICATIONS Unknown Medications RESULTS No Results PROCEDURES Procedure Date Ordered Result Body Site LAB NOT BILLED BY [facility] Jan 03, 2018 URINE TEST Jan 03, 2018 THER/PROPH/DIAG INJ, SC/IM Jan 03, 2018 DEPO PROVERA (150 MG/ML) Jan 03, 2018 INSTRUCTIONS MEDICATIONS ADMINISTERED No Known Medications MEDICAL (GENERAL) HISTORY Type Description Date Surgical History dilatation and curettage 2014 Surgical History 3 wisdom teeth extraction Hospitalization History childbirth only
--- OUTSIDE RECORDS SUMMARY | 2018-05-04 22:42 | XMS REPORT | Continuity of Care Document ---
Author Author [facility] Organization [facility] Address Unknown Phone Unavailable Allergies Active Description Code Type Severity Reaction Onset Reported/Identified Relationship to Patient Clinical Status Yes nitrofurantoin [id number] Drug Allergy Unknown HIVES 01/07/2017 Yes Nitrofurantoin Macrocrystal [id number] Drug Allergy Unknown HIVES 2016 Yes ondansetron HCl [id number] Drug Allergy Unknown N/A 01/07/2017 Medications There is no data. Problems Date Dx Coded Attending Type Code Diagnosis Diagnosed By 05/21/2013 COSME RAMIREZ APRN Ot 724.2 LUMBAGO 10/27/2013 AYLA HUERTA, CHUCKY Tirado Ot 883.0 OPEN WOUND OF FINGER 10/27/2013 AYLA HUERTA, CHUCKY Tirado Ot E920.4 ACCID-OTHER HAND TOOLS 10/27/2013 AYLA HUERTA, CHUCKY Tirado Ot V06.1 [id number], COMBINED [ 05/27/2014 DONI HUERTA, SOPHIE Clark Ot 634.90 SPON ABORT UNCOMPL-UNSP 05/31/2014 COSME RAMIREZ APRN Ot 780.64 CHILLS (WITHOUT FEVER) 05/31/2014 COSME RAMIREZ FABRICATOR ARTIFICIAL BREAST Ot 780.79 OTH MALAISE FATIGUE 06/03/2014 CHERI HUERTA, TITUS Pierson Ot 632 MISSED 06/03/2014 CHERI HUERTA, TITUS Pierson Ot 634.91 SPON ABORT UNCOMPL-INC 02/26/2015 COSME RAMIREZ FABRICATOR [employer]IFICIAL BREAST Ot N72 INFLAMMATORY DISEASE OF CERVIX UTERI [...] Ot 632 MISSED 10/19/2016 TITUS ALONZO MD Ot V72.83 EXAM PRE-OPERATIVE NEC 10/19/2016 TITUS [...] Ot F17.210 NICOTINE DEPENDENCE, CIGARETTES, UNCOMPL 08/23/2017 JOSE CHRISTIANSEN MD Ot N39.0 URINARY TRACT INFECTION, SITE NOT SPECIF 08/23/2017 JOSE CHRISTIANSEN MD Ot R25.8 OTHER ABNORMAL INVOLUNTARY MOVEMENTS 08/23/2017 JOSE CHRISTIANSEN MD Ot Z82.49 FAMILY HX OF ISCHEM HEART DIS AND OTH DI 08/23/2017 JOSE CHRISTIANSEN MD Ot Z86.14 PERSONAL HISTORY OF METHICILLIN RESIS ST 08/23/2017 JOSE CHRISTIANSEN MD Ot Z88.8 ALLERGY STATUS TO [facility] DRUG/MEDS/BIOL SUB 08/24/2017 TITUS ALONZO MD Ot 285.9 ANEMIA NOS 08/24/2017 TITUS ALONZO MD Ot 632 MISSED 08/24/2017 TITUS ALONZO MD Ot V72.83 EXAM PRE-OPERATIVE NEC 08/24/2017 TITUS ALONZO MD Ot V74.8 SCREEN-BACTERIAL DIS NEC 08/24/2017 TITUS ALONZO MD Ot 285.9 ANEMIA NOS 08/24/2017 TITUS ALONZO MD Ot 632 MISSED 08/24/2017 TITUS ALONZO MD Ot V72.83 EXAM PRE-OPERATIVE NEC 08/24/2017 TITUS ALONZO MD, Ot V74.8 SCREEN-BACTERIAL DIS NEC 12/29/2017 Ot R07.0 PAIN IN THROAT 12/29/2017 Ot R11.0 NAUSEA 12/29/2017 Ot R61 GENERALIZED HYPERHIDROSIS 12/29/2017 Ot R68.83 CHILLS ( WITHOUT FEVER) 12/29/2017 Ot T43.215A ADVRS EFFECT OF SLCTV SEROTON/NOREPINEPH 12/29/2017 Ot Z77.22 CNTCT W AND EXPSR TO ENVIRON TOBACCO SMO 12/29/2017 Ot Z82.49 FAMILY HX OF ISCHEM HEART DIS AND OTH DI 12/29/2017 Ot Z88.8 ALLERGY STATUS TO OTH DRUG/MEDS/BIOL SUB 01/02/2018 Ot R07.0 PAIN IN THROAT 01/02/2018 Ot R11.0 NAUSEA 01/02/2018 Ot R61 GENERALIZED HYPERHIDROSIS 01/02/2018 Ot R68.83 CHILLS ( WITHOUT FEVER) 01/02/2018 Ot T43.215A ADVRS EFFECT OF SLCTV SEROTON/NOREPINEPH 01/02/2018 Ot Z77.22 CNTCT W AND EXPSR TO ENVIRON TOBACCO SMO 01/02/2018 Ot Z82.49 FAMILY HX OF ISCHEM HEART DIS AND OTH DI 01/02/2018 Ot Z88.8 ALLERGY STATUS TO OTH DRUG/MEDS/BIOL SUB 01/08/2018 COSME RAMIREZ APRN Ot S99.922A UNSPECIFIED INJURY OF LEFT FOOT, INITIAL 01/08/2018 COSME RAMIREZ APRN Ot W45.0XXA NAIL ENTERING THROUGH SKIN, INITIAL ENCO 01/10/2018 COSME RAMIREZ APRN Ot S99.922A UNSPECIFIED INJURY OF LEFT FOOT, INITIAL 01/10/2018 COSME RAMIREZ APRN Ot W45.0XXA NAIL ENTERING THROUGH SKIN, INITIAL ENCO Procedures Code Description Performed By Performed On [id number] 09/21/2015 [id number] 09/21/2015 [id number] 09/21/2015 Results Test Result Range CBC With [...] 08/23/17 20:05 URINE CULTURE RESULTS <10,000/ML NRG CBC - 01/03/18 13:16 WHITE BLOOD CELL COUNT 9.9 Thousand/uL 3.8-10.8 RED BLOOD CELL COUNT 4.76 Million/uL 3.80-5.10 HEMOGLOBIN 15.4 g/dL 11.7-15.5 HEMATOCRIT 45.6 % 35.0-45.0 MCV 95.8 fL 80.0-100.0 MCH 32.4 pg 27.0-33.0 MCHC 33.8 g/dL 32.0-36.0 RDW 11.5 % 11.0-15.0 PLATELET COUNT 256 Thousand/uL 140-400 MPV 11.7 fL 7.5-12.5 ABSOLUTE NEUTROPHILS 6732 cells/uL 2051-5291 ABSOLUTE LYMPHOCYTES 2475 cells/uL 850-3900 ABSOLUTE MONOCYTES 594 cells/uL 200-950 ABSOLUTE EOSINOPHILS 59 cells/uL 15-500 ABSOLUTE BASOPHILS 40 cells/uL 0-200 NEUTROPHILS 68 % NRG LYMPHOCYTES 25.0 % NRG MONOCYTES 6.0 % NRG EOSINOPHILS 0.6 % NRG BASOPHILS 0.4 % NRG TSH - 01/03/18 13:16 TSH 1.05 mIU/L NRG Encounters ACCT No. Visit Date/Time Discharge Status Pt. Type Provider Facility Loc./Unit Complaint [id number] 01/08/2018 15:00:00 01/08/2018 16:42:00 DIS Emergency COSME RAMIREZ APRN [facility] ER L FOOT STEPPED ON NAIL [id number] 08/23/2017 19:24:00 08/23/2017 21:15:00 DIS Emergency JOSE CHRISTIANSEN MD [facility] ER SHAKEY FEELING [id number] 01/07/2017 11:45:00 01/07/2017 14:50:00 DIS Emergency MARYBETH HUERTA, JESSICA S [facility] ER SHAKING/NAUSEOUS [id number] 10/21/2016 08:15:00 10/21/2016 23:59:59 CLS Preadmit ELAINE JANE A ARNP [facility] RAD RUQ PAIN R10.11 [id number] 09/26/2015 07:34:00 09/26/2015 23:59:59 CLS Outpatient TITUS ALONZO MD [facility] RAD [id number] 09/21/2015 09:26:00 09/22/2015 18:20:00 DIS Outpatient TITUS ALONZO MD [facility] LDRP [id number] 08/25/2015 18:52:00 08/25/2015 19:42:00 DIS Outpatient TITUS ALONZO MD [facility] WSo [id number] 02/26/2015 11:14:00 02/26/2015 13:51:00 DIS Emergency COSME RAMIREZ APRN [facility] ER ABD CRAMPING,BACK PAIN [id number] 06/03/2014 06:05:00 06/03/2014 09:35:00 DIS Outpatient TITUS ALONZO MD [facility] SDC MISSED [id number] 05/31/2014 12:15:00 05/31/2014 23:59:59 CLS Outpatient TITUS ALONZO MD [facility] PREOP MISSED [id number] 05/31/2014 18:23:00 05/31/2014 20:11:00 DIS Emergency COSME RAMIREZ FABRICATOR ARTIFICIAL BREAST [facility] ER CHILLS,SOA [id number] 05/27/2014 21:42:00 05/27/2014 23:21:00 DIS Emergency SOPHIE MARION MD [facility] ER VAG BLEED AT 11 WEEKS [id number] 10/26/2013 23:58:00 10/27/2013 00:19:00 DIS Emergency CHUCKY AGUILA MD [facility] ER TETANUS SHOT [id number] 05/21/2013 20:11:00 05/21/2013 22:25:00 DIS Emergency COSME RAMIREZ APRN [facility] ER BACK PAIN [id number] 01/14/2013 22:23:00 01/14/2013 22:48:00 DIS Emergency [id number] 10/10/2012 22:21:00 10/10/2012 22:51:00 DIS Emergency [id number] 09/11/2012 13:21:00 09/11/2012 14:57:00 DIS Emergency [id number] 09/09/2012 23:30:00 09/10/2012 00:35:00 DIS Emergency [id number] 05/04/2018 22:34:00 ACT Emergency KWABENA MCKEON EVARISTO Isaac [facility] ER VOMITING, THROAT FEELS FUNNY [id number] 12/29/2017 22:02:00 Document Registration [id number] 06/17/2015 21:32:00 Document Registration [id number] 06/05/2015 18:25:00 Document Registration [id number] 06/03/2014 21:46:49 ACT Document Registration [id number] 10/14/2016 13:05:00 Document Registration [id number] 10/31/2016 11:17:00 Document Registration [id number] 09/28/2017 12:00:00 09/28/2017 23:59:59 [facility] Outpatient JANE ELAINE [facility] [id number] 01/03/2018 12:00:00 Document Registration [id number] 04/20/2017 11:40:00 Document Registration
[2018-05-04] MEDS ORDERED: CEPHALEXIN 250 MG (KEFLEX) CAP PO ONE (22:45)
[2018-05-04] MEDS ORDERED: ALBU18HF2 INH (22:52)
[2018-05-04] MEDS ORDERED: CEPH-507 PO (22:53)
--- NOTE | 2018-05-04 22:53 | ED Cough/URI ---
General Chief Complaint: Cough/Cold/Flu Symptoms Stated Complaint: VOMITING, THROAT FEELS FUNNY Nursing Triage Note: COUGH, NASAL CONGESTION Source: patient Exam Limitations: no limitations History of Present Illness Date Seen by Provider: May 04, 2018 Time Seen by Provider: 22:50 Initial Comments To ER with reports of productive cough, nasal congestion, sore throat, nausea and vomiting and chills for the past week. No diarrhea. No abdominal pain. Timing/Duration: week Severity/Quality: productive cough Associated Symptoms: cough Allergies and Home Medications Allergies Coded Allergies: Nitrofurantoin Macrocrystal (Verified Allergy, Unknown, HIVES, 01/07/17) nitrofurantoin (Verified Allergy, Unknown, HIVES, 01/07/17) ondansetron HCl (Verified Allergy, Unknown, 01/07/17) Home Medications Albuterol Sulfate 18 Gm Hfa.aer.ad, 2 PUFF INH Q4H PRN for SHORTNESS OF BREATH Prescribed by: COSME RAMIREZ on 05/04/182251 Cephalexin 500 Mg Capsule, 500 MG PO TID Prescribed by: COSME RAMIREZ on 05/04/182252 Patient Home Medication List Home Medication List Reviewed: Yes Review of Systems Review of Systems Constitutional: see HPI, chills EENTM: see HPI, nose congestion, throat pain Respiratory: see HPI, cough Cardiovascular: no symptoms reported Genitourinary: no symptoms reported Musculoskeletal: no symptoms reported Skin: no symptoms reported Past Njitznu-Jobvjh-Vpnlvt Hx Patient Social History Alcohol Use: Denies Use Recreational Drug Use: No Smoking Status: Current Someday Smoker Type Used: Cigarettes 2nd Hand Smoke Exposure: Yes Recent Foreign Travel: No Contact w/Someone Who Travel: No Recent Infectious Disease Expo: No Recent Hopitalizations: No Immunizations Up To Date Tetanus Booster (TDap): Unknown PED Vaccines UTD: Yes Date of Pneumonia Vaccine: Feb 13, 2011 Date of Influenza Vaccine: Feb 13, 2011 Seasonal Allergies Seasonal Allergies: No Past Medical History Surgeries: Yes (D&C) Respiratory: No Cardiac: No Neurological: No Reproductive Disorders: Yes Female Reproductive Disorders: Denies Sexually Transmitted Disease: Yes (chlamydia) HIV/AIDS: No Genitourinary: No Gastrointestinal: No Musculoskeletal: No Endocrine: No HEENT: No Cancer: No Psychosocial: No Integumentary: Yes (h/o mrsa infections of the lt ear) Blood Disorders: No Family Medical History Alcoholism 19 FATHER 19 MOTHER Cardiovascular disease 19 MOTHER Congenital heart disease 19 MOTHER Hypertension 19 MOTHER Myocardial infarction 19 MOTHER No Pertinent Family Hx Physical Exam Vital Signs - First Documented 05/04/18 22:36 Temp 97.8 Pulse 83 Resp 16 B/P (MAP) 137/71 (93) Pulse Ox 100 O2 Delivery Room Air Capillary Refill : Less Than 3 Seconds Height: 5'6.00" Weight: 185lbs. 0.0oz. 83.488130ee; 34.2 BMI Method:Stated General Appearance: WD/WN, no apparent distress Eyes: Bilateral Eye Normal Inspection, Bilateral Eye PERRL, Bilateral Eye EOMI HEENT: PERRL/EOMI, normal ENT inspection, other (erythema and cobblestoning of oropharynx with mucous in the oropharynx) Neck: non-tender, full range of motion; No lymphadenopathy (R), No lymphadenopathy (L) Cardiovascular: regular rate, rhythm, no murmur Neurologic/Psychiatric: alert, normal mood/affect, oriented x 3 Skin: normal color Progress/Results/Core Measures Suspected Sepsis Recent Fever Within 48 Hours: No Infection Criteria Present: None New/Unexplained Altered Menta: No Sepsis Screen: No Definite Risk SIRS Temperature:97.8 Pulse: 83 Respiratory Rate: 16 Blood Pressure 137 /71 Mean: 93 Results/Orders My Orders Orders - COSME RAMIREZ APRN Promethazine Tablet (Phenergan Tablet) (05/04/18 22:45) Chest Pa/Lat (2 View) (05/04/18 22:42) Dexamethasone Injection (Decadron Inject (05/04/18 22:45) Cephalexin Capsule (Keflex Capsule) (05/04/18 22:45) Rx-Acetaminophen/Codeine (Rx-Tylenol #3) (05/04/18 23:00) Vital Signs/I&O 05/04/18 22:36 Temp 97.8 Pulse 83 Resp 16 B/P (MAP) 137/71 (93) Pulse Ox 100 O2 Delivery Room Air Capillary Refill : Less Than 3 Seconds Blood Pressure Mean: 93 Departure Impression Primary Impression: Bronchitis Additional Impression: Pharyngitis Qualified Codes: J02.9 - Acute pharyngitis, unspecified Disposition: 01 HOME, SELF-CARE Condition: Stable Departure-Patient Inst. Decision time for Depature: 22:51 Referrals: [facility] (PCP/Family) Primary Care Physician Patient Instructions: Acute Bronchitis, Adult (DC) Add. Discharge Instructions: 1. Antibiotics as directed 2. Follow-up with your doctor next week 3. All discharge instructions reviewed with patient and/or family. Voiced understanding. Scripts Amoxicillin (Amoxicillin) 500 Mg Capsule 500 MG PO TID, #21 CAP Prov: COSME RAMIREZ APRN 05/04/18 Albuterol Sulfate (Ventolin Hfa) 18 Gm Hfa.aer.ad 2 PUFF INH Q4H PRN for SHORTNESS OF BREATH, #1 EACH Prov: COSME RAMIREZ APRN 05/04/18 Work/School Note: Work Release Form Date Seen in the Emergency Department: May 04, 2018 Return to Work: May 06, 2018 COSME RAMIREZ APRN May 04, 2018 22:53
[2018-05-04] MEDS ORDERED: AMOX500C2 PO (22:59)
[2018-05-04] MEDS: PROMETHAZINE 25 MG (PHENERGAN) TAB PO ONE (23:05)
[2018-05-04] MEDS: DEXAMETHASONE 10 MG/ML (DECADRON) 1 ML VIAL IM ONE (23:06)
[2018-05-04] MEDS: RX-ACETAMINOPHEN/CODEINE TAB PPK #4 PO SCH (23:06)
[2018-05-04 23:08] VITALS: BP 137/71
--- NOTE | 2018-05-05 07:55 | Diagnostic Imaging Report ---
EXAMINATION: CHEST (PA AND LATERAL) CLINICAL INDICATION: 23-year-old female, cough, congestion, fever. COMPARISON: None. FINDINGS: Heart size and mediastinal contours are unremarkable. There is no identified pneumothorax. There is no pleural effusion. There is no identified focal airspace consolidation. IMPRESSION: No identified acute cardiopulmonary abnormality. Dictated by: Dictated on workstation # [id number]
== END 2018-05-04 23:07 | disposition home or self-care (01) ==
LOC: EDUNIT# 22:33 → ER 22:34
DX: J40 Bronchitis, not specified as acute or chronic (principal); J02.9 Acute pharyngitis, unspecified; F17.210 Nicotine dependence, cigarettes, uncomplicated; Z79.51 Long term (current) use of inhaled steroids; Z88.8 Allergy status to other drugs, medicaments and biological substances
CPT/HCPCS: 71046; 96372

== ENCOUNTER 2018-05-05 23:08 | Emergency (ER) | payer MEDICAID ==
[~2018-05-05] VITALS: Ht 167.6 cm; Wt 81.6 kg
[~2018-05-05 23:08] MED LIST changes: +ALBU18HF2 INH
[2018-05-05] MEDS ORDERED: methylPREDNISolone 125 MG (Solu-MEDROL) VIAL IVP ONE (23:45)
[2018-05-06] MEDS ORDERED: AZIT500T PO (00:40)
--- NOTE | 2018-05-06 00:40 | ED General ---
General Chief Complaint: Allergic Reaction Stated Complaint: ALLERGIC RXN Source of Information: Patient History of Present Illness Date Seen by Provider: May 05, 2018 Time Seen by Provider: 23:20 Initial Comments PT ARRIVES VIA POV STATES SHE WAS SEEN HERE YESTERDAY FOR COUGH/CONGESTION AND SORE THROAT WAS DX WITH BRONCHITIS AND PHARYNGITIS AND GIVEN RX'S FOR ALBUTEROL AND AMOXIL HAS ALSO BEEN TAKING OTC IBUPROFEN PT STATES BETWEEN 1999 AND 2100 TONIGHT, SHE STARTED HAVING "HIVES" AND ITCHING TO HER FACE AND NECK AND WAS A LITTLE HARD TO BREATHE TONIGHT. STATES SHE TOOK 25 MG OF BENADRYL PRIOR TO ARRIVAL AND SYMPTOMS ARE GONE NOW. STATES SHE HAS HAD SIMILAR ALLERGIC REACTIONS TO ZOFRAN AND MACROBID. ALSO HAD ADVERSE REACTION TO VENLAFAXINE IN DECEMBER BUT NOT THESE EXACT SAME SYMPTOMS NO SWELLING ANYWHERE NO DIFFICULTY SWALLOWING. PCP: DOMO-NELLY, JOSUÉ WATSON Allergies and Home Medications Allergies Coded Allergies: Nitrofurantoin Macrocrystal (Verified Allergy, Unknown, HIVES, 01/07/17) nitrofurantoin (Verified Allergy, Unknown, HIVES, 01/07/17) ondansetron HCl (Verified Allergy, Unknown, 01/07/17) Home Medications Albuterol Sulfate 18 Gm Hfa.aer.ad, 2 PUFF INH Q4H PRN for SHORTNESS OF BREATH Prescribed by: COSME RAMIREZ on 05/04/182251 Amoxicillin 500 Mg Capsule, 500 MG PO TID Prescribed by: COSME RAMIREZ on 05/04/182258 Azithromycin 500 Mg Tablet, 500 MG PO DAILY FOR INFECTION Prescribed by: EVARISTO YUAN on 05/06/18 0040 Patient Home Medication List Home Medication List Reviewed: Yes Review of Systems Review of Systems Constitutional: no symptoms reported EENTM: see HPI Respiratory: see HPI Cardiovascular: no symptoms reported Gastrointestinal: no symptoms reported Genitourinary: no symptoms reported Musculoskeletal: no symptoms reported Skin: see HPI, pruritus, rash Psychiatric/Neurological: No Symptoms Reported Hematologic/Lymphatic: No Symptoms Reported Immunological/Allergic: no symptoms reported Past Graqyst-Ouhbbd-Gggbpz Hx Patient Social History 2nd Hand Smoke Exposure: Yes Recent Foreign Travel: No Contact w/Someone Who Travel: No Recent Hopitalizations: No Immunizations Up To Date Tetanus Booster (TDap): Unknown PED Vaccines UTD: Yes Date of Pneumonia Vaccine: Feb 13, 2011 Date of Influenza Vaccine: Feb 13, 2011 Seasonal Allergies Seasonal Allergies: No Past Medical History Surgeries: Yes (D&C) Respiratory: No Cardiac: No Neurological: No Reproductive Disorders: Yes Female Reproductive Disorders: Denies Sexually Transmitted Disease: Yes (chlamydia) HIV/AIDS: No Genitourinary: No Gastrointestinal: No Musculoskeletal: No Endocrine: No HEENT: No Cancer: No Psychosocial: No Integumentary: Yes (h/o mrsa infections of the lt ear) Blood Disorders: No Family Medical History Alcoholism 19 FATHER 19 MOTHER Cardiovascular disease 19 MOTHER Congenital heart disease 19 MOTHER Hypertension 19 MOTHER Myocardial infarction 19 MOTHER No Pertinent Family Hx Physical Exam Vital Signs Vital Signs - First Documented 05/05/18 23:16 Temp 98.3 Pulse 96 Resp 20 B/P (MAP) 114/68 (83) Pulse Ox 99 O2 Delivery Room Air Capillary Refill : Height, Weight, BMI Height: 5'6.00" Weight: 185lbs. 0.0oz. 83.443486if; 34.2 BMI Method:Stated General Appearance: No Apparent Distress, WD/WN HEENT: PERRL/EOMI, Normal ENT Inspection, Other (MILD PHARYNGEAL ERYTHEMA.NO EXUDATES, NO SWELLING OF TONGUE, UVULA OR POSTERIOR PHARYNX OR LIPS. TONGUE IS COATED WHITE. ) Neck: Full Range of Motion, Normal Inspection, Non Tender, Supple Respiratory: Normal Breath Sounds, No Accessory Muscle Use, No Respiratory Distress; No Stridor, No Wheezing Cardiovascular: Regular Rate, Rhythm, No Edema, No JVD, No Murmur Gastrointestinal: Non Tender, Soft Extremity: Normal Capillary Refill, Normal Range of Motion, No Pedal Edema Neurologic/Psychiatric: Alert, Oriented x3, No Motor/Sensory Deficits, Normal Mood/Affect, supervisor records change II-XII Norm as Tested Skin: Normal Color, Warm/Dry; No Rash Progress/Results/Core Measures Suspected Sepsis SIRS Temperature: Pulse: Respiratory Rate: Blood Pressure / Mean: Results/Orders My Orders Orders - EVARISTO YUAN DO Methylprednisolone Sod Succ (Solu-Medrol (05/05/18 23:45) Medications Given in ED Current Medications Medications Dose Ordered Sig/Sylwia Route Start Time Stop Time Status Last Admin Dose Admin Methylprednisolone Sodium Succinate 125 mg ONCE ONCE IVP 05/05/18 23:45 05/05/18 23:46 DC 05/05/18 23:58 125 MG Vital Signs/I&O 05/05/18 05/06/18 23:16 03:38 Temp 98.3 98.5 Pulse 96 78 Resp 20 20 B/P (MAP) 114/68 (83) 112/71 (85) Pulse Ox 99 100 O2 Delivery Room Air Room Air Capillary Refill : Progress Note : Progress Note UNEVENTFUL ER STAY PT STATES SHE FEELS BETTER Departure Impression Primary Impression: Adverse effects of medication Additional Impressions: Acute bronchitis Pharyngitis Disposition: HOME, SELF-CARE Condition: Improved Departure-Patient Inst. Referrals: [facility] (PCP/Family) Primary Care Physician Patient Instructions: Acute Bronchitis, Adult (DC), Adverse Drug Reactions, Adult (DC), Sore Throat, Adult (DC) Add. Discharge Instructions: STOP AMOXIL CONTINUE YOUR OTHER MEDICATIONS PRESCRIBED BENADRYL 50 MG EVERY 4 HOURS NEEDED FOR RASH AND ITCHING FOLLOW UP WITH YOUR DR IN 2-3 DAYS IF NO BETTER RETURN TO ER IF WORSE All discharge instructions reviewed with patient and/or family. Voiced understanding. Scripts Azithromycin (Zithromax) 500 Mg Tablet 500 MG PO DAILY, #5 TAB FOR INFECTION Prov: EVARISTO YUAN DO 05/06/18 EVARISTO YUAN DO May 06, 2018 00:40
[2018-05-06 03:38] VITALS: BP 112/71
== END 2018-05-06 00:52 | disposition home or self-care (01) ==
LOC: EDUNIT# 23:08 → ER 23:10
DX: L50.9 Urticaria, unspecified (principal); T48.6X5A Adverse effect of antiasthmatics, initial encounter; T36.0X5A Adverse effect of penicillins, initial encounter; J02.9 Acute pharyngitis, unspecified; J20.9 Acute bronchitis, unspecified; Z88.8 Allergy status to other drugs, medicaments and biological substances

== ENCOUNTER 2018-05-22 21:44 | Emergency (ER) | payer MEDICAID ==
[~2018-05-22] VITALS: Ht 165.1 cm; Wt 81.6 kg
[~2018-05-22 21:44] MED LIST changes: +AZIT500T PO
--- NOTE | 2018-05-22 21:52 | NUR ---
WENT TO WAITING ROOM TO ASSESS PT CONDITION, PT IS AAOX4, NO S/S OF DISTRESS, HAS A BANDAID OVER THE INJURY SITE, A SMALL SCRAPE ON THE [place]. BLLEDING IS ABSENT.
--- OUTSIDE RECORDS SUMMARY | 2018-05-22 22:08 | XMS REPORT | Continuity of Care Document ---
Author Author [facility] Organization [facility] Address Unknown Phone Unavailable Allergies Active Description Code Type Severity Reaction Onset Reported/Identified Relationship to Patient Clinical Status Yes nitrofurantoin [id number] Drug Allergy Unknown HIVES 01/07/2017 Yes Nitrofurantoin Macrocrystal [id number] Drug Allergy Unknown HIVES 2016 Yes ondansetron HCl [id number] Drug Allergy Unknown N/A 01/07/2017 Medications There is no data. Problems Date Dx Coded Attending Type Code Diagnosis Diagnosed By 05/21/2013 COSME RAMIREZ APRN Ot 724.2 LUMBAGO 10/27/2013 AYLA HUERTA, CHUCKY Tirado Ot 883.0 OPEN WOUND OF FINGER 10/27/2013 AYLA HUERTA, CHUCKY Tirado Ot E920.4 ACCID-OTHER HAND TOOLS 10/27/2013 AYLA HUERTA, CHUCKY Tirado Ot V06.1 [id number], COMBINED [ 05/27/2014 DONI HUERTA, SOPHIE Clark Ot 634.90 SPON ABORT UNCOMPL-UNSP 05/31/2014 COSME RAMIREZ APRN Ot 780.64 CHILLS (WITHOUT FEVER) 05/31/2014 COSME RAMIREZ CONTROL SYSTEMS ENGINEER Ot 780.79 OTH MALAISE FATIGUE 06/03/2014 CHERI HUERTA, TITUS Pierson Ot 632 MISSED 06/03/2014 CHERI HUERTA, TITUS Pierson Ot 634.91 SPON ABORT UNCOMPL-INC 02/26/2015 COSME RAMIREZ CONTROL SYSTEMS ENGINEER Ot N72 INFLAMMATORY DISEASE OF CERVIX UTERI [...] CHRISTIANSEN MD Ot Z88.8 ALLERGY STATUS TO [facility] DRUG/MEDS/BIOL SUB 08/24/2017 TITUS ALONZO MD Ot [...] W45.0XXA NAIL ENTERING THROUGH SKIN, INITIAL ENCO 05/04/2018 COSME RAMIREZ APRN Ot F17.210 NICOTINE DEPENDENCE, CIGARETTES, UNCOMPL 05/04/2018 COSME RAMIREZ APRN Ot J02.9 ACUTE PHARYNGITIS, UNSPECIFIED 05/04/2018 COSME RAMIREZ APRN Ot J40 BRONCHITIS, NOT SPECIFIED ACUTE OR CH 05/04/2018 COSME RAMIREZ APRN Ot R05 COUGH 05/04/2018 COSME RAMIREZ APRN Ot Z79.51 LONG-TERM (CURRENT) USE OF INHALED STERO 05/04/2018 COSME RAMIREZ APRN Ot Z88.8 ALLERGY STATUS TO OTH DRUG/MEDS/BIOL SUB 05/05/2018 CHERI HUERTA, TITUS G Ot 285.9 ANEMIA NOS 05/05/2018 CHERI HUERTA, TITUS Pierson Ot 632 MISSED 05/05/2018 CHERI HUERTA, TITUS Pierson Ot V72.83 EXAM PRE-OPERATIVE NEC 05/05/2018 CHERI HUERTA, TITUS Dangelo Ot V74.8 SCREEN-BACTERIAL DIS NEC 05/08/2018 COSME RAMIREZ CONTROL SYSTEMS ENGINEER Ot F17.210 NICOTINE DEPENDENCE, CIGARETTES, UNCOMPL 05/08/2018 COSME RAMIREZ CONTROL SYSTEMS ENGINEER Ot J02.9 ACUTE PHARYNGITIS, UNSPECIFIED 05/08/2018 COSME RAMIREZ CONTROL SYSTEMS ENGINEER Ot J40 BRONCHITIS, NOT SPECIFIED ACUTE OR CH 05/08/2018 COSME RAMIREZ APRN Ot R05 COUGH 05/08/2018 COSME RAMIREZ APRN Ot Z79.51 LONG-TERM (CURRENT) USE OF INHALED STERO 05/08/2018 COSME RAMIREZ CONTROL SYSTEMS ENGINEER Ot Z88.8 ALLERGY STATUS TO OTH DRUG/MEDS/BIOL SUB 05/10/2018 KWABENA DO, EVARISTO K Ot J02.9 ACUTE PHARYNGITIS, UNSPECIFIED 05/10/2018 KWABENA DO, EVARISTO K Ot J20.9 ACUTE BRONCHITIS, UNSPECIFIED 05/10/2018 KWABENA DO, EVARISTO K Ot L50.9 URTICARIA, UNSPECIFIED 05/10/2018 KWABENA DO, EVARISTO K Ot T36.0X5A ADVERSE EFFECT OF PENICILLINS, INITIAL E 05/10/2018 KWABENA DO, EVARISTO K Ot T48.6X5A ADVERSE EFFECT OF ANTIASTHMATICS, INITIA 05/10/2018 KWABENA DO EVARISTO K Ot Z88.8 ALLERGY STATUS TO OTH DRUG/MEDS/BIOL SUB 05/13/2018 KWABENA DO, EVARISTO K Ot J02.9 ACUTE PHARYNGITIS, UNSPECIFIED 05/13/2018 KWABENA DO, EVARISTO K Ot J20.9 ACUTE BRONCHITIS, UNSPECIFIED 05/13/2018 KWABENA DO, EVARISTO K Ot L50.9 URTICARIA, UNSPECIFIED 05/13/2018 KWABENA DO, EVARISTO K Ot T36.0X5A ADVERSE EFFECT OF PENICILLINS, INITIAL E 05/13/2018 KWABENA DO, EVARISTO K Ot T48.6X5A ADVERSE EFFECT OF ANTIASTHMATICS, INITIA 05/13/2018 EVARISTO YAUN DO Ot Z88.8 ALLERGY STATUS TO OT DRUG/MEDS/BIOL SUB Procedures Code Description Performed By Performed On [id number] 09/21/2015 [id number] 09/21/2015 [id number] 09/21/2015 Results Test Result Range CBC With [...] - 08/23/17 20:05 URINE CULTURE RESULTS <10,000/ML [facility] CBC - 01/03/18 13:16 WHITE BLOOD CELL COUNT 9.9 Thousand/uL 3.8-10.8 RED BLOOD CELL COUNT 4.76 Million/uL 3.80-5.10 HEMOGLOBIN 15.4 g/dL 11.7-15.5 HEMATOCRIT 45.6 % 35.0-45.0 MCV 95.8 fL 80.0-100.0 MCH 32.4 pg 27.0-33.0 MCHC 33.8 g/dL 32.0-36.0 RDW 11.5 % 11.0-15.0 PLATELET COUNT 256 Thousand/uL 140-400 MPV 11.7 fL 7.5-12.5 ABSOLUTE NEUTROPHILS 6732 cells/uL 6528-7720 ABSOLUTE LYMPHOCYTES 2475 cells/uL 850-3900 ABSOLUTE MONOCYTES 594 cells/uL 200-950 ABSOLUTE EOSINOPHILS 59 cells/uL 15-500 ABSOLUTE BASOPHILS 40 cells/uL 0-200 NEUTROPHILS 68 % NRG LYMPHOCYTES 25.0 % NRG MONOCYTES 6.0 % NRG EOSINOPHILS 0.6 % NRG BASOPHILS 0.4 % NRG TSH - 01/03/18 13:16 TSH 1.05 mIU/L NRG Encounters ACCT No. Visit Date/Time Discharge Status Pt. Type Provider Facility Loc./Unit Complaint [id number] 05/05/2018 23:10:00 05/06/2018 00:52:00 DIS Outpatient EVARISTO YUAN DO [facility] ER ALLERGIC RXN [id number] 05/04/2018 22:34:00 05/04/2018 23:07:00 DIS Emergency COSME RAMIREZ CONTROL SYSTEMS ENGINEER [facility] ER VOMITING, THROAT FEELS FUNNY [id number] 01/08/2018 15:00:00 01/08/2018 16:42:00 DIS Emergency COSME RAMIREZ CONTROL SYSTEMS ENGINEER [facility] ER L FOOT STEPPED ON NAIL [id number] 08/23/2017 19:24:00 08/23/2017 21:15:00 DIS Emergency ЕЛЕНА HUERTA, JOSE June [facility] ER SHAKEY FEELING [id number] 01/07/2017 11:45:00 01/07/2017 14:50:00 DIS Emergency MARYBETH HUERTA, JESSICA Norman [facility] ER SHAKING/NAUSEOUS [id number] 10/21/2016 08:15:00 10/21/2016 23:59:59 CLS Preadmit JANE ELAINE [facility] RAD RUQ PAIN R10.11 [id number] 09/26/2015 07:34:00 09/26/2015 23:59:59 CLS Outpatient TITUS ALONZO MD [facility] RAD [id number] 09/21/2015 09:26:00 09/22/2015 18:20:00 DIS Outpatient TITUS ALONZO MD [facility] LDRP [id number] 08/25/2015 18:52:00 08/25/2015 19:42:00 DIS Outpatient TITUS ALONZO MD [facility] WSo [id number] 02/26/2015 11:14:00 02/26/2015 13:51:00 DIS Emergency COSME RAMIREZ APRN [facility] ER ABD CRAMPING,BACK PAIN [id number] 06/03/2014 06:05:00 06/03/2014 09:35:00 DIS Outpatient TITUS ALONZO MD [facility] SDC MISSED [id number] 05/31/2014 12:15:00 05/31/2014 23:59:59 CLS Outpatient TITUS ALONZO MD [facility] PREOP MISSED [id number] 05/31/2014 18:23:00 05/31/2014 20:11:00 DIS Emergency COSME RAMIREZ APRN [facility] ER CHILLS,SOA [id number] 05/27/2014 21:42:00 05/27/2014 23:21:00 DIS Emergency DONI HUERTA, SOPHIE Clark [facility] ER VAG BLEED AT 11 WEEKS [id number] 10/26/2013 23:58:00 10/27/2013 00:19:00 DIS Emergency AYLA HUERTA, CHUCKY Tirado [facility] ER TETANUS SHOT [id number] 05/21/2013 20:11:00 05/21/2013 22:25:00 DIS Emergency COSME RAMIREZ APRN [facility] ER BACK PAIN [id number] 01/14/2013 22:23:00 01/14/2013 22:48:00 DIS Emergency [id number] 10/10/2012 22:21:00 10/10/2012 22:51:00 DIS Emergency [id number] 09/11/2012 13:21:00 09/11/2012 14:57:00 DIS Emergency [id number] 09/09/2012 23:30:00 09/10/2012 00:35:00 DIS Emergency [id number] 12/29/2017 22:02:00 Document Registration [id number] 06/17/2015 21:32:00 Document Registration [id number] 06/05/2015 18:25:00 Document Registration [id number] 06/03/2014 21:46:49 ACT Document Registration [id number] 10/14/2016 13:05:00 Document Registration [id number] 10/31/2016 11:17:00 Document Registration [id number] 09/28/2017 12:00:00 09/28/2017 23:59:59 [facility] Outpatient JANE ELAINE [facility] [id number] 01/03/2018 12:00:00 Document Registration [id number] 04/20/2017 11:40:00 Document Registration
[2018-05-22] MEDS ORDERED: RX-MUPIROCIN (BACTROBAN) 2% OINT 22 GM TUBE TOP STA (22:34)
--- NOTE | 2018-05-22 22:38 | ED Lower Extremity ---
General Chief Complaint: Laceration Stated Complaint: HAY HOOK LACERATED RT LEG Nursing Triage Note: Pt. advises she accidently caught her right leg on a hay hook approximately one hour prior to arrival. She advises that she cleaned it with hydrogen peroxide and alcohol prior to arrival to the ER. Nursing Sepsis Screen: No Definite Risk History of Present Illness Date Seen by Provider: May 22, 2018 Time Seen by Provider: 22:20 Initial Comments 23-year-old female was working in her barn when she ran into a [place] hook was using a laceration to the right lower extremity. She clean the wound immediately with peroxide and alcohol. Her last tetanus vaccine was within one year. Onset: just prior to arrival Pain/Injury Location: left leg (Distal anterior tibia) Method of Injury: incised (on a hay hook) Allergies and Home Medications Allergies Coded Allergies: Nitrofurantoin Macrocrystal (Verified Allergy, Unknown, HIVES, 05/22/18) nitrofurantoin (Verified Allergy, Unknown, HIVES, 05/22/18) ondansetron HCl (Verified Allergy, Unknown, 05/22/18) Amoxicillin (Verified Allergy, 05/22/18) Cephalosporins (Verified Allergy, 05/22/18) Home Medications Albuterol Sulfate 18 Gm Hfa.aer.ad, 2 PUFF INH Q4H PRN for SHORTNESS OF BREATH Prescribed by: COSME RAMIREZ on 05/04/18 225 Amoxicillin 500 Mg Capsule, 500 MG PO TID Prescribed by: COSME RAMIREZ on 05/04/18 225 Azithromycin 500 Mg Tablet, 500 MG PO DAILY FOR INFECTION Prescribed by: EVARISTO YUAN on 05/06/18 0040 Patient Home Medication List Home Medication List Reviewed: Yes Review of Systems Constitutional: no symptoms reported, see HPI Skin: see HPI, other (puncture wound to right LE from [place]) All Other Systems Reviewed Negative Unless Noted: Yes Past Pknqnia-Ahkyvd-Npdoxb Hx Past Med/Social Hx: Reviewed Nursing Past Med/Soc Hx Patient Social History Alcohol Use: Denies Use Recreational Drug Use: No Smoking Status: Current Everyday Smoker Type Used: Cigarettes 2nd Hand Smoke Exposure: Yes Recent Foreign Travel: No Contact w/Someone Who Travel: No Recent Infectious Disease Expo: No Recent Hopitalizations: No Immunizations Up To Date Tetanus Booster (TDap): Unknown PED Vaccines UTD: Yes Date of Pneumonia Vaccine: Feb 13, 2011 Date of Influenza Vaccine: Feb 13, 2011 Seasonal Allergies Seasonal Allergies: No Past Medical History Surgeries: Yes (D&C) Respiratory: No Cardiac: No Neurological: No Reproductive Disorders: Yes Female Reproductive Disorders: Denies Sexually Transmitted Disease: Yes (chlamydia) HIV/AIDS: No Genitourinary: No Gastrointestinal: No Musculoskeletal: No Endocrine: No HEENT: No Cancer: No Psychosocial: No Integumentary: Yes (h/o mrsa infections of the lt ear) Blood Disorders: No Family Medical History Alcoholism 19 FATHER 19 MOTHER Cardiovascular disease 19 MOTHER Congenital heart disease 19 MOTHER Hypertension 19 MOTHER Myocardial infarction 19 MOTHER No Pertinent Family Hx Physical Exam Vital Signs Vital Signs - First Documented 05/22/18 22:15 Temp 99.7 Pulse 65 Resp 14 B/P (MAP) 123/78 (93) Pulse Ox 100 O2 Delivery Room Air Capillary Refill : Less Than 3 Seconds Height, Weight, BMI Height: 5'5.00" Weight: 180lbs. 0.0oz. 81.463504dh; 34.2 BMI Method:Stated General Appearance: WD/WN, no apparent distress Cardiovascular: normal peripheral pulses, regular rate, rhythm, no murmur Respiratory: chest non-tender, lungs clear, normal breath sounds Neurologic/Tendon: normal sensation, normal motor functions, normal tendon functions Neurologic/Psychiatric: no motor/sensory deficits, alert, normal mood/affect, oriented x 3 Skin: normal color, warm/dry, other (puncture wound to right lower extremity, distal anterior tibia. Trace bleeding.) Progress/Results/Core Measures Results/Orders My Orders Orders - AMILCAR MARIE Rx-Mupirocin 2% Oint (Rx-Bactroban) (05/22/18 22:34) Vital Signs/I&O 05/22/18 05/22/18 22:15 22:50 Temp 99.7 Pulse 65 65 Resp 14 14 B/P (MAP) 123/78 (93) 123/78 (93) Pulse Ox 100 100 O2 Delivery Room Air Room Air Blood Pressure Mean: 93 Progress Progress Note : Time: 22:20 Progress Note Patient seen and evaluated, the wound was irrigated with 500 ML's of sterile saline with Hibiclens. Bactroban and sterile dressing were applied. Ice pack given. Patient tolerated procedure well. Discharge instructions and return precautions reviewed. Departure Impression Primary Impression: Laceration of right lower leg Qualified Codes: S81.811A - Laceration without foreign body, right lower leg, initial encounter Disposition: 01 HOME, SELF-CARE Condition: Improved Departure-Patient Inst. Decision time for Depature: 22:45 Referrals: [facility] (PCP/Family) Primary Care Physician Patient Instructions: Skin Abrasions (DC) Add. Discharge Instructions: Rinse area with peroxide 2-3 times daily and apply Mupirocin 3 times a day. Apply ice packs to the area every 2 hours while awake for swelling and bruising. Follow-up with your primary care provider if symptoms of increased redness, pain , swelling, or discolored drainage occur. You may alternate between Tylenol 650 mg and ibuprofen 600 mg every 4 hours for pain and swelling. Return to emergency department for fever greater than 101 not relieved by Tylenol or ibuprofen, increased pain at wound site, or new injuries. All discharge instructions reviewed with patient and/or family. Voiced understanding. AMILCAR MARIE May 22, 2018 22:38
[2018-05-22 22:50] VITALS: BP 123/78
== END 2018-05-22 22:51 | disposition home or self-care (01) ==
LOC: EDUNIT# 21:44 → ER 21:45
DX: S81.811A Laceration without foreign body, right lower leg, initial encounter (principal); F17.210 Nicotine dependence, cigarettes, uncomplicated; Z86.19 Personal history of other infectious and parasitic diseases; Z82.49 Family history of ischemic heart disease and other diseases of the circulatory system; Z98.890 Other specified postprocedural states; Z88.8 Allergy status to other drugs, medicaments and biological substances; Z88.0 Allergy status to penicillin; Z88.1 Allergy status to other antibiotic agents; Z79.51 Long term (current) use of inhaled steroids; W26.8XXA Contact with other sharp object(s), not elsewhere classified, initial encounter

== ENCOUNTER 2019-05-15 20:11 | Emergency (ER) | payer MEDICAID ==
[~2019-05-15] VITALS: Ht 160 cm; Wt 79.6 kg
[2019-05-15 20:32] LABS: BILIRUBIN,URINE NEGATIVE (NEGATIVE); CLARITY,URINE CLEAR; COLOR,URINE YELLOW; GLUCOSE, URINE (UA) NEGATIVE (NEGATIVE); KETONES,URINE NEGATIVE (NEGATIVE); LEUKOCYTE ESTERASE ,URINE NEGATIVE (NEGATIVE); NITRITE,URINE NEGATIVE (NEGATIVE); PROTEIN,URINE NEGATIVE (NEGATIVE)
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
[2019-05-15 20:36] LABS: BASOPHILS % (AUTO) 0 % (0-10); EOSINOPHILS # (AUTO) 0.1 10^3/uL (0.0-0.3); EOSINOPHILS % (AUTO) 1 % (0-10); HEMATOCRIT 44 % (35-52); HEMOGLOBIN 15.5 G/DL (11.5-16.0); LYMPHOCYTES # (AUTO) 2.3 X 10^3 (1.0-4.0); LYMPHOCYTES % (AUTO) 24 % (12-44); MEAN CORPUSCULAR HEMOGLOBIN 34 PG (25-34); MEAN CORPUSCULAR HGB CONC 36 G/DL (32-36); MEAN CORPUSCULAR VOLUME 97 FL (80-99); MEAN PLATELET VOLUME 10.6 FL (7.4-10.4); MONOCYTES # (AUTO) 0.6 X 10^3 (0.0-1.0); MONOCYTES % (AUTO) 7 % (0-12); NEUTROPHILS # (AUTO) 6.4 X 10^3 (1.8-7.8); NEUTROPHILS % (AUTO) 68 % (42-75); PLATELET COUNT 219 10^3/uL (130-400); RED CELL DISTRIBUTION WIDTH 13.6 % (10.0-14.5); WHITE BLOOD COUNT 9.4 10^3/uL (4.3-11.0)
[2019-05-15 20:42] LABS: BACTERIA,URINE TRACE /HPF; RBC,URINE RARE /HPF; SQUAMOUS EPITHELIAL CELL,UR 0-2 /HPF
[2019-05-15] MEDS ORDERED: IOHEXOL 350 MG/ML 100 ML (OMNIPAQUE 350) VIAL IV ONE (20:45)
[2019-05-15] MEDS ORDERED: HOLD METFORMIN - RECEIVED CONTRAST 20 ML VIAL IV SCH (20:45)
[2019-05-15] MEDS ORDERED: NS 100 ML (IVPB) BAG IV ONE (20:45)
[2019-05-15] MEDS ORDERED: RX-CYCLOBENZAPRINE 10 MG (FLEXERIL) TAB PPK#3 PO STA (20:51)
--- NOTE | 2019-05-15 21:03 | Diagnostic Imaging Report ---
PROCEDURE: CT abdomen and pelvis with contrast. TECHNIQUE: Multiple contiguous axial images were obtained through the abdomen and pelvis after administration of intravenous contrast. Auto Exposure Controls were utilized during the CT exam to meet ALARA standards for radiation dose reduction. INDICATION: Abdominal pain and trauma. COMPARISON: None. FINDINGS: The lung bases are clear. The gallbladder, solid organs, vascular structures, and bowel are normal. There is no free air or free fluid. The uterus is intact. Distal ureters and urinary bladder are normal. The anterior abdominal wall and osseous structures are normal. IMPRESSION: Negative CT abdomen and pelvis. Dictated by: Dictated on workstation # [id number]
[2019-05-15 21:19] VITALS: BP 127/94
== END 2019-05-15 21:30 | disposition home or self-care (01) ==
LOC: EDUNIT# 20:11 → ER 20:12
DX: S30.1XXA Contusion of abdominal wall, initial encounter (principal); R40.2142 Coma scale, eyes open, spontaneous, at arrival to emergency department; R40.2252 Coma scale, best verbal response, oriented, at arrival to emergency department; R40.2362 Coma scale, best motor response, obeys commands, at arrival to emergency department; F17.210 Nicotine dependence, cigarettes, uncomplicated; Z88.1 Allergy status to other antibiotic agents; Z88.0 Allergy status to penicillin; Z88.8 Allergy status to other drugs, medicaments and biological substances; Z82.49 Family history of ischemic heart disease and other diseases of the circulatory system; V48.6XXA Car passenger injured in noncollision transport accident in traffic accident, initial encounter
CPT/HCPCS: 36415; 74177; 81000; 84703; 85025

== ENCOUNTER → 2019-12-07 | Outpatient (CLI) | payer MEDICAID ==
--- NOTE | 2019-12-07 10:52 | Diagnostic Imaging Report ---
PROCEDURE: US OB SINGLE FETUS <14 WKS. TECHNIQUE: Multiple real-time grayscale images were obtained over the gravid uterus in various projections. INDICATION: dating. FINDINGS: There is an intrauterine gestational sac containing a pole. Peletier-rump length measurement is approximately 25 mm consistent with 9 weeks 3 days gestational age. heart rate was recorded at 176 bpm. No tena-gestational sac hemorrhage is detected. Adnexa are unremarkable. No adnexal mass or free fluid is detected. IMPRESSION: Single live IUP at 9 weeks 3 days gestational age. Estimated date of confinement sonographically is 07/08/2020. Dictated by: Dictated on workstation # [id number]
== END ==
LOC: RAD 09:50
PROVIDERS: ATTEND Family Medicine
DX: Z34.91 Encounter for supervision of normal pregnancy, unspecified, first trimester (principal); Z3A.09 9 weeks gestation of pregnancy
CPT/HCPCS: 76801

== ENCOUNTER → 2020-02-11 | Outpatient (CLI) | payer MEDICAID ==
[~2020-02-11] MED LIST changes: -OXYC-465 PO; +OXYC-556 PO
--- NOTE | 2020-02-11 13:32 | Diagnostic Imaging Report ---
INDICATION: survey. TECHNIQUE: Multiple Real-time grayscale images were obtained over the gravid uterus. COMPARISON: 12/07/2019. FINDINGS: The prior OB ultrasound exam of 12/07/2019 noted a single live fetus of approximately 9 weeks 3 days gestation. On this exam, the fetus is again visualized. The fetus is in breech presentation. heart motion was noted and a rate of 147 BPM was recorded. There were no abnormalities identified; however, the kidneys and the four-chamber heart view were less than optimal due to lie. I would recommend that a short-term (4-6 week) followup exam be performed for further study. The growth parameters are fairly uniform have progressed as expected since the prior study. The amniotic fluid volume is within normal limits. The placenta is anterior and there is no previa. The cervix was identified and measures 4.3 cm in length. IMPRESSION: 1. There is a single live fetus of approximately 18 weeks 6 days gestation +/- 1 week. The EDC remains 07/08/2020. 2. There were no abnormalities identified but the heart and kidneys were not optimally visualized. Recommendations as above. 3. The growth parameters have progressed as expected since the prior study. Biometrical measurements are as follows: Biparietal 4.24 cm, age 18 weeks 6 days. Head circumference 15.67 cm, age 18 weeks 5 days. Abdominal circumference 13.11 cm, age 18 weeks 5 days. Femur length 2.84 cm, age 18 weeks 5 days. Sonographic estimate age: 18 weeks 6 days. Sonographic estimated date of delivery: 07/08/2020. Estimated Weight: 251 gm (+/- 37 gm). LMP percentile: 34%. heart rate: 147 beats per minute. number: 1 of 1. IMPRESSION: Dictated by: Dictated on workstation # [id number]
== END ==
LOC: RAD 10:00
PROVIDERS: ATTEND Family Medicine
DX: Z34.92 Encounter for supervision of normal pregnancy, unspecified, second trimester (principal); Z3A.18 18 weeks gestation of pregnancy
CPT/HCPCS: 76805

== ENCOUNTER → 2020-04-03 | Outpatient (CLI) | payer MEDICAID ==
--- NOTE | 2020-04-03 12:54 | Diagnostic Imaging Report ---
INDICATION: Follow-up kidneys and four-chamber heart. TECHNIQUE: Multiple real-time grayscale images were obtained over the gravid uterus. COMPARISON: 02/11/2020. FINDINGS: There is a single live fetus in breech presentation. heart rate was recorded 150 bpm. Placenta is anterior. No previa is identified. Amniotic fluid index is 10.2 cm. kidneys and four-chamber heart view are unremarkable on today's study. IMPRESSION: Unremarkable limited obstetrical ultrasound. Dictated by: Dictated on workstation # [id number]
== END ==
LOC: RAD 10:00
PROVIDERS: ATTEND Family Medicine
DX: Z34.00 Encounter for supervision of normal first pregnancy, unspecified trimester (principal); Z3A.00 Weeks of gestation of pregnancy not specified
CPT/HCPCS: 76816

== ENCOUNTER 2020-07-03 06:00 | Inpatient (IN) | payer MEDICAID ==
[2020-07-03] VITALS (26 sets, daily range): BP systolic 99–159; BP diastolic 53–80
[~2020-07-03] VITALS: Ht 162 cm; Wt 86.3 kg
[2020-07-03] MEDS ORDERED: D5 LR IV SOLUTION 1,000 ML IV SCH (06:30)
--- NOTE | 2020-07-03 06:35 | History & Physical-OB ---
OB - Chief Complaint & HPI Date/Time Date of Admission: Date of Admission: Jul 03, 2020 at 06:06 Date seen by a Provider: Jul 03, 2020 Time Seen by a Provider: 06:33 Chief Complaint/History OB-Reason for Admission/Chief: Induction of Labor Hx : 3 Hx Para: 2 Expected Date of Delivery: Jul 07, 2020 Gestational Age in Weeks: 39 Admission Nurse Assessment Rev: Yes History of Labs GBS negative Allergies and Home Medications Allergies Coded Allergies: Cephalosporins (Verified Allergy, Unknown, 05/22/18) Nitrofurantoin Macrocrystal (Verified Allergy, Unknown, HIVES, 05/22/18) amoxicillin (Verified Allergy, Unknown, 05/22/18) nitrofurantoin (Verified Allergy, Unknown, HIVES, 05/22/18) ondansetron HCl (Verified Allergy, Unknown, 05/22/18) Patient Home Medication List Home Medication List Reviewed: Yes OB - History Hx of Present Care: Yes Ultrasounds: Normal mid trimester US Obstetrical Complications: None Medical Complications: None Obstetrical History Hx Termination: No Hx Multiple Gestation: No Hx Stillbirth: No Hx Complication: No Hx Induced Hypertens: No Hx Maternal Gestational Diabet: No Delivery History Hx Dystocia: No Hx Large For Gestational Age I: No Hx Small for Gestational Age I: No Hx Section: No Hx Vaginal Delivery Post C-Sec: No Hx Blood Disorders: No Patient Past Medical History no chronic medical problems Social History/Family History 2nd Hand Smoke Exposure: Yes Immunizations Tetanus Booster (TDap): Unknown Date of Pneumonia Vaccine: Feb 13, 2011 Date of Influenza Vaccine: Feb 13, 2011 OB - Admission Exam Physical Exam HEENT: Moist Membranes Heart: Rhythm Normal Lungs: Clear Abdomen: Gravid Extremities: Normal Cervical Dilatation: 2cm Effacement: 50% Station: -3 Membranes: Intact Heart Rate: 140's Accelerations: Accelerations Present Intensity: Mild Lopez Scoring Tool (Modified) Dilation (cm): 1-2cm (1) Effacement (%): 31-51% (1) Descent/Station: -3 (0) Cervix Consistency: Medium(1) Cervix Position: Middle/Mid-Position (1) Add 1 point for: Each previous vaginal delivery (1) Lopez Score: 6 OB - Assessment/Plan/Diagnosis Assessment Assessment: induction of labor Admission Dx IUP at term 39 weeks. Admission Status: Inpatient Order (span 2 midnights) Reason for Inpatient Admission: L&D Plan Plan: Induction Induction Method: AROM Other Plan -pitocin if necessary PARRISH PAULSON MD Jul 03, 2020 06:35
[2020-07-03] MEDS ORDERED: BUTORPHANOL INJ 2 MG/ML (STADOL) VIAL IV PRN (06:45)
[2020-07-03 06:49] LABS: BASOPHILS % (AUTO) 0 % (0-10); EOSINOPHILS # (AUTO) 0.1 10^3/uL (0.0-0.3); EOSINOPHILS % (AUTO) 1 % (0-10); HEMATOCRIT 40 % (35-52); HEMOGLOBIN 13.8 g/dL (11.5-16.0); LYMPHOCYTES # (AUTO) 2.9 10^3/uL (1.0-4.0); LYMPHOCYTES % (AUTO) 22 % (12-44); MEAN CORPUSCULAR HEMOGLOBIN 33 pg (25-34); MEAN CORPUSCULAR HGB CONC 35 g/dL (32-36); MEAN CORPUSCULAR VOLUME 94 fL (80-99); MEAN PLATELET VOLUME 11.1 fL (9.0-12.2); MONOCYTES # (AUTO) 0.8 10^3/uL (0.0-1.0); MONOCYTES % (AUTO) 6 % (0-12); NEUTROPHILS # (AUTO) 9.2 10^3/uL (1.8-7.8); NEUTROPHILS % (AUTO) 70 % (42-75); PLATELET COUNT 249 10^3/uL (130-400); WHITE BLOOD COUNT 13.1 10^3/uL (4.3-11.0)
[2020-07-03] MEDS ORDERED: OXYTOCIN PRE-MIX DRIP 500 ML IV SCH ×2 (07:15→11:30)
[2020-07-03] MEDS ORDERED: MEPIVACAINE (CARBOCAINE) 2% 50 ML VIAL ONE (10:34)
--- NOTE | 2020-07-03 11:20 | OB Labor & Delivery Record ---
L&D History Date of Service Date of Service: Jul 03, 2020 History Expected Date of Delivery: Jul 08, 2020 Gestational Age in Weeks: 39 Hx : 3 Hx Para: 3 Complications Events: Routine care Operative Indications (Cesarea: N/A-Vaginal Delivery Intrapartal Events: None L&D Stage1 Stage One Onset of Labor - Date: Jul 03, 2020 Onset of Labor - Time: 06:30 Monitors and Tracing Monitor Mode: Internal Heart Rate: 135 Monitor Accelerations: Uniform Monitor Decelerations: None Station: -1 Practical Nurse Variability: Average (6-10) Short Term Variability: Present Presentation: Vertex Vital Signs VS - Last 72 Hours, by Label 07/03/20 07/03/20 07/03/20 07/03/20 07:35 08:05 08:20 08:35 Temp 36.7 Pulse 71 69 63 71 Resp 18 18 18 18 B/P (MAP) 115/69 (84) 111/68 (82) 110/68 (82) 112/80 (91) 07/03/20 07/03/20 07/03/20 08:50 09:05 09:20 Pulse 66 62 61 Resp 18 18 18 B/P (MAP) 117/65 (82) 111/66 (81) 104/66 (79) Signs of Distress by FHT Signs of Distress no Rupture of Membranes Spontaneous Ruture of Membrane: No Amniotic Membrane Rupture Time: 0644 Amniotic Membrane Fluid Desc.: Clear Induction/Anesthesia Medications Stadol x 2 L&D Stage2 Stage Two Stage II Date: Jul 03, 2020 Stage II Time: 11:02 Monitors and Tracing Monitor Mode: Internal Heart Rate: 135 Monitor Accelerations: Uniform Monitor Decelerations: Early Alf Variability: Average (6-10) Position: Left Occiput Anterior Presentation: Vertex Signs of Distress by FHT Signs of Distress no Cord Descript/Complications Cord Vessel Description: 3 Vessels Delivery Type Delivery Method: Spontaneous Vaginal Anterior Shoulder: Left Episiotomy/Perineal Laceration Laceraction(s)/Extensions: No Condition of Infant Delivery 1 minute Comment: 8 5 minute Comment: 9 Condition of Infant Condition of Infant: Living Exam: No Observed Abnormalities Resuscitation Resuscitation: N/A - Spontaneous Resp L&D Stage3 Stage Three Stage III Date: Jul 03, 2020 Stage III Time: 11:08 Pictocin Pitocin Administration mu/min: 8 Pitocin ml/hr: 8 Pitocin Administration Comment: Pitiocin increased per protocol Placenta Delivery Placenta Delivery: Spontaneous Delivery Summary Summary Estimated blood loss (mL): 200 Condition of Delivery Examined: Cervix Examined Post Hemorrhage: No Intervention Required none PARRISH PAULSON MD Jul 03, 2020 11:20
[2020-07-03] MEDS ORDERED: WITCH HAZEL(TUCKS) 40 EA JAR TOP PRN (11:30)
[2020-07-03] MEDS ORDERED: MEASLES,MUMPS,RUBELLA 1 EA INJ SQ ONE (11:30)
[2020-07-03] MEDS ORDERED: TETANUS,DIPTH,PERTUSS P/F (BOOSTRIX) 0.5 ML VIAL IM ONE (11:30)
[2020-07-03] MEDS ORDERED: BENZOCAINE/MENTHOL (DERMOPLAST) 60 ML CAN TP PRN (11:30)
[2020-07-03] MEDS: IBUPROFEN 600 MG (MOTRIN) TAB PO SCH ×2 (13:13→20:20)
[2020-07-03] MEDS ORDERED: CATHETER FLUSH 10 ML SYR IV SCH ×2 (14:00)
[2020-07-03] MEDS: ACETAMINOPHEN 500 MG TAB (TYLENOL) PO SCH ×2 (16:24→23:27)
[2020-07-03] MEDS: DOCUSATE SODIUM 100 MG (COLACE) CAP PO SCH (23:27)
[2020-07-04] MEDS: IBUPROFEN 600 MG (MOTRIN) TAB PO SCH ×2 (02:14→09:13)
[2020-07-04 04:47] VITALS: BP 118/58
[2020-07-04] MEDS: ACETAMINOPHEN 500 MG TAB (TYLENOL) PO SCH ×2 (05:20→12:32)
[2020-07-04 06:21] LABS: BASOPHILS # (AUTO) 0.1 10^3/uL (0.0-0.1); BASOPHILS % (AUTO) 1 % (0-10); EOSINOPHILS # (AUTO) 0.1 10^3/uL (0.0-0.3); EOSINOPHILS % (AUTO) 1 % (0-10); HEMATOCRIT 35 % (35-52); HEMOGLOBIN 11.7 g/dL (11.5-16.0); LYMPHOCYTES # (AUTO) 3.1 10^3/uL (1.0-4.0); LYMPHOCYTES % (AUTO) 24 % (12-44); MEAN CORPUSCULAR HEMOGLOBIN 33 pg (25-34); MEAN CORPUSCULAR HGB CONC 34 g/dL (32-36); MEAN CORPUSCULAR VOLUME 96 fL (80-99); MEAN PLATELET VOLUME 11.1 fL (9.0-12.2); MONOCYTES # (AUTO) 0.9 10^3/uL (0.0-1.0); MONOCYTES % (AUTO) 7 % (0-12); NEUTROPHILS # (AUTO) 8.8 10^3/uL (1.8-7.8); NEUTROPHILS % (AUTO) 67 % (42-75); PLATELET COUNT 207 10^3/uL (130-400); WHITE BLOOD COUNT 13.1 10^3/uL (4.3-11.0)
--- NOTE | 2020-07-04 06:51 | Discharge Summary ---
Diagnosis/Chief Complaint Date of Admission Jul 03, 2020 at 06:06 Date of Discharge July 04, 2020 Discharge Date: Jul 04, 2020 Discharge Time: 12:00 Admission Diagnosis Admission Diagnosis 1. Intrauterine at term 39 weeks gestation Discharge Diagnosis 1. Intrauterine at term 39 weeks gestation Reason Hospital Visit 25-year-old 3 now term 3 who initially presented to labor and delivery during the morning of July 03, 2020 for induction of labor. Patient was noted to be at 39 weeks 3 days gestation upon presentation. Her care was essentially unremarkable. Her group B strep status at 36 weeks vaginally was negative. Discharge Summary-OBS Procedures 1. Spontaneous vaginal delivery Discharge Physical Examination Allergies: Coded Allergies: Cephalosporins (Verified Allergy, Unknown, 05/22/18) Nitrofurantoin Macrocrystal (Verified Allergy, Unknown, HIVES, 05/22/18) amoxicillin (Verified Allergy, Unknown, 05/22/18) nitrofurantoin (Verified Allergy, Unknown, HIVES, 05/22/18) ondansetron HCl (Verified Allergy, Unknown, 05/22/18) Vitals & I&Os Vital Signs Date Time Temp Pulse Resp B/P (MAP) Pulse Ox O2 Delivery O2 Flow Rate FiO2 07/04/20 04:47 36.2 63 18 118/58 (78) 99 Room Air General Appearance: Alert, No Acute Distress Respiratory: Clear to Auscultation Cardiovascular: Regular Rate Abdominal: Soft (with uterus firm) Skin: No Rashes Hospital Course Was the Problem List Reviewed?: Yes following admission on July 03, 2019 she underwent amniotomy. Patient was noted to have clear fluid with placement of scalp electrode. She required low-dose Pitocin augmentation to achieve adequate labor pattern. She did not request epidural. She wasn't eventually on to completion at which time she was allowed to push. Patient delivered over an intact perineum a term viable female with Apgars of 8 at 1 minute and 9 at 5 minutes. Following delivery she underwent routine care orders. She had no complications during the remainder of hospital stay. Her hemoglobin in the morning of July 04, 2020 was noted to be 11.7 compared to admission of 13.8. She tolerated regular diet during the course of her stay. She also denied any significant vaginal bleeding. She was without any shortness of breath, chest pain or leg pain. She was felt ready for dismissal during the early afternoon of July 04, 2020. Pending Labs Laboratory Tests 07/04/20 06:08: White Blood Count 13.1, Red Blood Count 3.59, Hemoglobin 11.7, Hematocrit 35, Mean Corpuscular Volume 96, Mean Corpuscular Hemoglobin 33, Mean Corpuscular Hemoglobin Concent 34, Red Cell Distribution Width 12.9, Platelet Count 207, Mean Platelet Volume 11.1, Immature Granulocyte % (Auto) 1, Neutrophils (%) (Auto) 67, Lymphocytes (%) (Auto) 24, Monocytes (%) (Auto) 7, Eosinophils (%) (Auto) 1, Basophils (%) (Auto) 1, Neutrophils # (Auto) 8.8, Lymphocytes # (Auto) 3.1, Monocytes # (Auto) 0.9, Eosinophils # (Auto) 0.1, Basophils # (Auto) 0.1, Immature Granulocyte # (Auto) 0.1 Discharge Instructions to patient/family Please see electronic discharge instructions given to patient. Discharge Medications Reviewed and agree with Discharge Medication list on patient's Discharge Instruction sheet PARRISH PAULSON MD Jul 04, 2020 06:51
--- NOTE | 2020-07-04 06:53 | Discharge Inst-Women's Service ---
Discharge Inst-Women's Serv Depart Medication/Instructions New, Converted or Re-Newed RX: Other Instructions may utilize the ibuprofen 800 mg tablets you have at home. Take 1 tablet of 800 mg every 8 hours as needed for uterine cramping. Taper off as cramping improves. Problems Reviewed?: Yes Consults/Follow Up Additional Follow Up: Yes (Dr Paulson in 6 weeks.) Activity Driving Instructions: You May Drive Nothing Inside Vagina: No [place] (for 6 weeks) Diet Discharge Diet: Regular Diet Return to The Hospital For: as below Symptoms to Report to : Bleeding Excessive, Fever Over 101 Degrees F, Vaginal Discharge Foul For Any Problems or Questions: Contact Your Physician PARRISH PAULSON MD Jul 04, 2020 06:53
[2020-07-04 09:00] VITALS: BP 113/58
[2020-07-04] MEDS: DOCUSATE SODIUM 100 MG (COLACE) CAP PO SCH (09:13)
[2020-07-04 12:30] VITALS: BP 115/72
[2020-07-04 13:35] VITALS: BP 115/72
== END 2020-07-04 13:35 | disposition home or self-care (01) | DRG 807 ==
LOC: LDRP 06:06
PROVIDERS: ADMIT Family Medicine; ATTEND Family Medicine
PROC: 10E0XZZ Delivery of Products of Conception, External Approach (ICD-10-PCS; principal; 2020-07-03)
DX: O80 Encounter for full-term uncomplicated delivery (principal); Z37.0 Single live birth; Z3A.39 39 weeks gestation of pregnancy; Z20.822 Contact with and (suspected) exposure to COVID-19
CPT/HCPCS: 36415; 85025; 86850; 86900; 86901; 87635

== ENCOUNTER 2020-12-05 22:13 | Emergency (ER) | payer MEDICAID ==
[~2020-12-05] VITALS: Ht 160 cm; Wt 72.0 kg
--- NOTE | 2020-12-06 01:32 | ED Cough/URI ---
General Chief Complaint: Fever-Adult/Adol Stated Complaint: HEADACHE,COUGH Nursing Triage Note: Pt ambulatory into ER with whole family with complaint of Covid exposure, [place], Body Aches, Cough Source: patient History of Present Illness Date Seen by Provider: Dec 05, 2020 Time Seen by Provider: 23:55 Initial Comments PT ARRIVES VIA POV FROM HOME WITH MULTIPLE FAMILY MEMBERS--5 FAMILY MEMBERS ALL BEING SEEN FOR SAME PT STATES SHE WAS EXPOSED TO COVID-19 ABOUT 2 WEEKS AGO SHE BEGAN HAVING SYMPTOMS AROUND 11/25 OR 11/26, WORSE ON 11/29/20--BUT WHOLE FAMILY WENT TO [place] ON 11/29/20, DESPITE PT BEING SICK NOW MULTIPLE FAMILY MEMBERS ARE ILL WELL C/O HEADACHE C/O BODY ACHES C/O COUGH C/O BILATERAL EAR PRESSURE HAD SUBJECTIVE FEVER AND CHILLS, BUT HAS NOT HAD THOSE SYMPTOMS FOR A FEW DAYS NO SHORTNESS OF BREATH HAD MILD NAUSEA ANd A LITTLE BIT OF DIARRHEA OFF AND ON HAS HAD CHANGE IN TASTE AND SMELL BUT NOT A COMPLETE LOSS OF TASTE/SMELL NO SORE THROAT PT HAS NOT BEEN VACCINATED FOR COVID-19 PT HAS NOT BEEN QUARANTINING. HAS NOT TAKEN ANYTHING FOR SYMPTOMS AT ANY TIME SYMPTOMS ARE GETTING BETTER HAS NOT SOUGHT CARE AT ANY TIME, UNTIL TONIGHT PT DOES SMOKE 1 PPD NO CHRONIC ILLNESSES PT DELIVERED 5 MONTHS AGO--NO COMPLICATIONS PCP: DOMO-NELLY Allergies and Home Medications Allergies Coded Allergies: Cephalosporins (Verified Allergy, Unknown, 05/22/18) Nitrofurantoin Macrocrystal (Verified Allergy, Unknown, HIVES, 05/22/18) amoxicillin (Verified Allergy, Unknown, 05/22/18) nitrofurantoin (Verified Allergy, Unknown, HIVES, 05/22/18) ondansetron HCl (Verified Allergy, Unknown, 05/22/18) Home Medications No Active Prescriptions or Reported Meds Patient Home Medication List Home Medication List Reviewed: Yes Review of Systems Review of Systems Constitutional: see HPI EENTM: see HPI Respiratory: see HPI Cardiovascular: no symptoms reported Gastrointestinal: see HPI Genitourinary: no symptoms reported Musculoskeletal: see HPI Skin: no symptoms reported Psychiatric/Neurological: See HPI Past Vncqnla-[id number]-[id number] Hx Patient Social History Tobacco Use?: Yes (1 PPD) Tobacco type used: Cigarettes Smoking Status: Current Everyday Smoker Use of E-Cig and/or Vaping dev: No Substance use?: No Alcohol Use?: No Pt feels they are or have been: No Immunizations Up To Date Tetanus Booster (TDap): Unknown PED Vaccines UTD: Yes Seasonal Allergies Seasonal Allergies: No Past Medical History Surgeries: Yes (D&C) Respiratory: No Cardiac: No Neurological: No Reproductive Disorders: Yes Female Reproductive Disorders: Denies Sexually Transmitted Disease: Yes (CHLAMYDIA) HIV/AIDS: No Genitourinary: No Gastrointestinal: No Musculoskeletal: No Endocrine: No HEENT: No Cancer: No Psychosocial: No Integumentary: No Blood Disorders: No Family Medical History Alcoholism 19 FATHER 19 MOTHER Cardiovascular disease 19 MOTHER Congenital heart disease 19 MOTHER Hypertension 19 MOTHER Myocardial infarction 19 MOTHER No Pertinent Family Hx Physical Exam Vital Signs - First Documented 12/05/20 23:50 Temp 36.5 Pulse 76 Resp 18 B/P (MAP) 119/75 (90) Pulse Ox 100 O2 Delivery Room Air Capillary Refill : Less Than 3 Seconds Height: 5'5.00" Weight: 180lbs. 0.0oz. 81.450290zc; 28.00 BMI Method:Stated General Appearance: WD/WN, no apparent distress, other (DOES NOT APPEAR ILL OR TO BE IN ANY DISCOMFORT OR DISTRESS) HEENT: PERRL/EOMI, normal ENT inspection, TMs normal, pharynx normal Neck: normal inspection Respiratory: normal breath sounds, no respiratory distress, no accessory muscle use Cardiovascular: regular rate, rhythm, no murmur Gastrointestinal: non tender, soft Extremities: normal inspection, normal capillary refill Neurologic/Psychiatric: podiatrist II-XII nml as tested, no motor/sensory deficits, alert, normal mood/affect, oriented x 3 Skin: normal color, warm/dry; No rash; tattoos/piercings (MULTIPLE TATTOOS) Progress/Results/Core Measures Suspected Sepsis SIRS Temperature: Pulse: 76 Respiratory Rate: 18 Blood Pressure 119 /75 Mean: 90 Results/Orders Lab Results Laboratory Tests Test 12/05/20 23:00 Range/Units Influenza Type A (RT-PCR) Not Detected Not Detecte Influenza Type B (RT-PCR) Not Detected Not Detecte SARS-CoV-2 RNA (RT-PCR) Not Detected Not Detecte My Orders Orders - EVARISTO YUAN DO [facility] 19 Inhouse Test (12/05/20 22:55) Influenza A And B By Pcr (12/05/20 22:55) Vital Signs/I&O 12/05/20 12/06/20 23:50 01:51 Temp 36.5 Pulse 76 70 Resp 18 20 B/P (MAP) 119/75 (90) 116/70 Pulse Ox 100 99 O2 Delivery Room Air Room Air Capillary Refill : Less Than 3 Seconds Blood Pressure Mean: 90 Progress Note : Progress Note PLACED IN ISOLATION ROOM PPE WORN AT ALL TIMES COVID-19 TESTING PERFORMED PT ADVISED OF NEED FOR QUARANTINE MULTIPLE OTHER FAMILY MEMBERS WITH PT TESTED + FOR COVID-19 TONIGHT. NO COUGH NO FEVER NO DYSPNEA NO HYPOXIA NO VOMITING OR DIARRHEA Departure Impression Primary Impression: COVID LIKE ILLNESS Additional Impressions: Person under investigation for COVID-19 Close exposure to COVID-19 virus Disposition: HOME, SELF-CARE Condition: Stable Departure-Patient Inst. Decision time for Depature: 01:28 Referrals: PARRISH PAULSON MD (PCP/Family) Primary Care Physician [facility] Patient Instructions: COVID-19 (DC), Preventing the Spread of an Infectious Disease, Recovery After COVID-19 Add. Discharge Instructions: TYLENOL AND MOTRIN NEEDED FOR PAIN OR FEVER OVER THE COUNTER MEDICATIONS NEEDED FOR COUGH AND CONGESTION FOLLOW UP WITH YOUR DR IF YOUR SYMPTOMS WORSEN QUARANTINE ALL HOUSEHOLD MEMBERS AND CLOSE CONTACTS FOR THE NEXT 2 WEEKS All discharge instructions reviewed with patient and/or family. Voiced understanding. Scripts No Active Prescriptions or Reported Meds EVARISTO YUAN DO Dec 06, 2020 01:32
[2020-12-06 01:51] VITALS: BP 116/70
== END 2020-12-06 01:36 | disposition home or self-care (01) ==
LOC: EDUNIT# 22:13 → ER 22:14
DX: R51.9 Headache, unspecified (principal); R43.9 Unspecified disturbances of smell and taste; H93.8X3 Other specified disorders of ear, bilateral; F17.210 Nicotine dependence, cigarettes, uncomplicated; Z20.822 Contact with and (suspected) exposure to COVID-19
CPT/HCPCS: 87636; 99282